=== PATIENT | female | born 1940 | race African-American/Black ===

== ENCOUNTER 2020-07-16 11:26 | Inpatient (IN) | payer MEDICARE, OTHER ==
[~2020-07-16] VITALS: Ht 170.2 cm; Wt 93.0 kg
[~2020-07-16 11:26] MED LIST: AMLO-187 PO; ASPI-482 PO; BENZ-8 PO; CALC-530 PO; CARV12.511 PO; CARV25TA PO; CHLO25TA10 PO; CYCL10TA2 PO; DICL100T68 PO; DONE5TAB7 PO; GABA300C18 PO; GUAI600T47 PO; LISI10TA2 PO; NITR0.4T22 SL; POTA20TA12 PO; RIVA20TA2 PO; TRIA1CAP PO
[2020-07-16] MEDS ORDERED: ONDANSETRON PF 4 MG/2 ML VIAL. IVP ONE (11:45)
[2020-07-16] MEDS ORDERED: IV NORMAL SALINE 1000ML BAG 1,000 ML IV ONE (11:45)
[2020-07-16 12:00] LABS: BASO % 0 % (0-3); EOS % 0 % (0-3); HEMATOCRIT 38.4 % (36.0-47.0); HEMOGLOBIN 12.9 g/dL (12.0-15.5); LYMPH % 30 % (24-48); MEAN CORPUSCULAR HEMOGLOBIN 28 pg (25-35); MEAN CORPUSCULAR HGB CONC 34 g/dL (31-37); MEAN CORPUSCULAR VOLUME 83 fL (79-100); MONO # 0.3 x10^3/uL (0.0-1.1); MONO % 8 % (0-9); NEUT # 2.1 x10^3/uL (1.8-7.7); NEUT % 62 % (31-73); PLATELET COUNT 148 x10^3/uL (140-400); RED BLOOD COUNT 4.63 x10^6/uL (3.50-5.40); RED CELL DISTRIBUTION WIDTH 16.1 % (11.5-14.5); WHITE BLOOD COUNT 3.4 x10^3/uL (4.0-11.0)
[2020-07-16 12:06] LABS: CALCIUM 8.3 mg/dL (8.5-10.1); CREATININE 1.3 mg/dL (0.6-1.0); GFR 47.6; POTASSIUM 3.2 mmol/L (3.5-5.1)
[2020-07-16 12:19] LABS: ALBUMIN 3.7 g/dL (3.4-5.0); ALBUMIN/GLOBULIN RATIO 0.9 (1.0-1.7); MAGNESIUM 1.9 mg/dL (1.8-2.4); TOTAL BILIRUBIN 0.7 mg/dL (0.2-1.0); TOTAL PROTEIN 7.8 g/dL (6.4-8.2)
[2020-07-16] MEDS ORDERED: IOHEXOL 350 MG/ML 100 ML VIAL. ONE (12:20)
[2020-07-16 12:26] LABS: CREATINE KINASE 77 U/L (26-192)
[2020-07-16] MEDS ORDERED: IOHEXOL 350 MG/ML 100 ML VIAL. IV ONE (12:30)
--- NOTE | 2020-07-16 12:45 | PHYS DOC ---
Past Medical History Smoking Status: Never Smoker General Adult EDM: Chief Complaint: SYNCOPE HPI: HPI: Patient is a 79 year old [f__sex] who presents with [] Review of Systems: Review of Systems: Constitutional: Denies fever or chills. [] Eyes: Denies change in visual acuity. [] HENT: Denies nasal congestion or sore throat. [] Respiratory: Denies cough or shortness of breath. [] Cardiovascular: Denies chest pain or edema. [] GI: Denies abdominal pain, nausea, vomiting, bloody stools or diarrhea. [] : Denies dysuria. [] Musculoskeletal: Denies back pain or joint pain. [] Integument: Denies rash. [] Neurologic: Denies headache, focal weakness or sensory changes. [] Endocrine: Denies polyuria or polydipsia. [] Lymphatic: Denies swollen glands. [] Psychiatric: Denies depression or anxiety. [] Heart Score: Risk Factors: Risk Factors: DM, Current or recent (<one month) smoker, HTN, HLP, family history of CAD, obesity. Risk Scores: Score 0 - 3: 2.5% MACE over next 6 weeks - Discharge Home Score 4 - 6: 20.3% MACE over next 6 weeks - Admit for Clinical Observation Score 7 - 10: 72.7% MACE over next 6 weeks - Early Invasive Strategies Current Medications: Current Medications Medications (Trade) Dose Ordered Sig/Magdalene Start Time Stop Time Status Last Admin Dose Admin Iohexol (Omnipaque 350 Mg/ml) 100 ml STK-MED ONCE 07/16/20 12:20 07/16/20 12:21 DC Ondansetron HCl (Zofran) 4 mg 1X ONCE 07/16/20 11:45 07/16/20 11:46 DC Sodium Chloride 1,000 ml @ 1,000 mls/hr 1X ONCE 07/16/20 11:45 07/16/20 12:44 Allergies: Allergies: Allergies Coded Allergies Type Severity Reaction Last Updated Verified ARB-Angiotensin Receptor Antagonist Allergy Intermediate 05/01/15 Yes Penicillins Allergy Intermediate 05/01/15 Yes meperidine Allergy Intermediate 05/01/15 Yes Physical Exam: PE: Constitutional: Well developed, well nourished, no acute distress, non-toxic appearance. [] HENT: Normocephalic, atraumatic, bilateral external ears normal, oropharynx moist, no oral exudates, nose normal. [] Eyes: PERRLA, EOMI, conjunctiva normal, no discharge. [] Neck: Normal range of motion, no tenderness, supple, no stridor. [] Cardiovascular:Heart rate regular rhythm, no murmur [] Lungs & Thorax: Bilateral breath sounds clear to auscultation [] Abdomen: Bowel sounds normal, soft, no tenderness, no masses, no pulsatile masses. [] Skin: Warm, dry, no erythema, no rash. [] Back: No tenderness, no CVA tenderness. [] Extremities: No tenderness, no cyanosis, no clubbing, ROM intact, no edema. [] Neurologic: Alert and oriented X 3, normal motor function, normal sensory function, no focal deficits noted. [] Psychologic: Affect normal, judgement normal, mood normal. [] Current Patient Data: Labs: Laboratory Tests Test 07/16/20 11:35 White Blood Count 3.4 x10^3/uL (4.0-11.0) L Red Blood Count 4.63 x10^6/uL (3.50-5.40) Hemoglobin 12.9 g/dL (12.0-15.5) Hematocrit 38.4 % (36.0-47.0) Mean Corpuscular Volume 83 fL (79-100) Mean Corpuscular Hemoglobin 28 pg (25-35) Mean Corpuscular Hemoglobin Concent 34 g/dL (31-37) Red Cell Distribution Width 16.1 % (11.5-14.5) H Platelet Count 148 x10^3/uL (140-400) Neutrophils (%) (Auto) 62 % (31-73) Lymphocytes (%) (Auto) 30 % (24-48) Monocytes (%) (Auto) 8 % (0-9) Eosinophils (%) (Auto) 0 % (0-3) Basophils (%) (Auto) 0 % (0-3) Neutrophils # (Auto) 2.1 x10^3/uL (1.8-7.7) Lymphocytes # (Auto) 1.0 x10^3/uL (1.0-4.8) Monocytes # (Auto) 0.3 x10^3/uL (0.0-1.1) Eosinophils # (Auto) 0.0 x10^3/uL (0.0-0.7) Basophils # (Auto) 0.0 x10^3/uL (0.0-0.2) Sodium Level 141 mmol/L (136-145) Potassium Level 3.2 mmol/L (3.5-5.1) L Chloride Level 104 mmol/L (98-107) Carbon Dioxide Level 28 mmol/L (21-32) Anion Gap 9 (6-14) Blood Urea Nitrogen 15 mg/dL (7-20) Creatinine 1.3 mg/dL (0.6-1.0) H Estimated GFR (Cockcroft-Gault) 47.6 BUN/Creatinine Ratio 12 (6-20) Glucose Level 134 mg/dL (70-99) H Lactic Acid Level 1.9 mmol/L (0.4-2.0) Calcium Level 8.3 mg/dL (8.5-10.1) L Magnesium Level 1.9 mg/dL (1.8-2.4) Total Bilirubin 0.7 mg/dL (0.2-1.0) Aspartate Amino Transferase (AST) 22 U/L (15-37) Alanine Aminotransferase (ALT) 21 U/L (14-59) Alkaline Phosphatase 116 U/L (46-116) Creatine Kinase 77 U/L (26-192) Creatine Kinase MB (Mass) < 0.5 ng/mL (0.0-3.6) Creatine Kinase MB Relative Index % (0-4) Troponin I Quantitative 0.046 ng/mL (0.000-0.055) Total Protein 7.8 g/dL (6.4-8.2) Albumin 3.7 g/dL (3.4-5.0) Albumin/Globulin Ratio 0.9 (1.0-1.7) L Laboratory Tests 07/16/20 11:35 Laboratory Tests 07/16/20 11:35 EKG: EKG: Sinus Bradycardia. QTc:450 QRS: 84 QT:500 [] Radiology/Procedures: Radiology/Procedures: [] Course & Med Decision Making: Course & Med Decision Making Pertinent Labs and Imaging studies reviewed. (See chart for details) [] Dragon Disclaimer: Dragon Disclaimer: This electronic medical record was generated, in whole or in part, using a voice recognition dictation system. Departure Departure Impression: Primary Impression: Syncope Qualified Codes: R55 - Syncope and collapse Additional Impressions: Hypoxia Suspected 2019 novel coronavirus infection Disposition: 09 ADMITTED INPT THIS HOSP Condition: GUARDED Referrals: PAT EMMANUEL MD (PCP) Critical Care Time Critical care time was 30 minutes which includes time at bedside, spent in discussion of patient's care with specialists and/or family members, with interpretation of laboratory and/or radiological studies and is exclusive of procedures. SHOLA VANG DO Jul 16, 2020 12:45
--- NOTE | 2020-07-16 12:58 | RAD ---
CT scan of the head without contrast 07/16/2020 Clinical History: Syncope. Altered mental status. Technique: Unenhanced, contiguous, 5 mm axial sections were obtained through the head. One or more of the following individualized dose reduction techniques were utilized for this study: 1. Automated exposure control. 2. Adjustment of the mA and/or kV according to patient size. 3. Use of iterative reconstruction technique. Findings: 01/07/2020. There is generalized parenchymal atrophy. Areas of decreased attenuation are seen within the perivent ricular and subcortical white matter of both cerebral hemispheres consistent with areas of small vess el ischemic disease. No acute parenchymal abnormality is seen. No extra-axial fluid collection is not ed. No skull fracture is seen. Impression: No acute intracranial abnormality is seen. CT scan of the cervical spine without contrast 07/16/2020 Clinical history: Syncope. Technique: Unenhanced, contiguous, 0.625 mm axial sections were obtained through the cervical spine. Axial, coronal and sagittal reconstructed images were obtained. One or more of the following individualized dose reduction techniques were utilized for this study: 1. Automated exposure control. 2. Adjustment of the mA and/or kV according to patient size. 3. Use of iterative reconstruction technique. Findings: Sagittal and coronal reconstructed images demonstrate mild lateral curvature of the cervica l spine, convex to the right. There is reversal the normal cervical lordosis. Degenerative changes co nsisting of varying degrees of disc space narrowing, vertebral endplate sclerosis and mild to moderat e anterior and posterior vertebral body osteophyte formation are seen throughout the cervical disc sp aces. Moderate atherosclerotic calcification is seen in the region of the carotid bifurcations. No fracture or subluxation of the cervical vertebra vertebrae is seen. Degenerative changes are seen involving the uncovertebral and facet joints throughout the cervical disc spaces. Impression: No fracture or subluxation of the cervical vertebra is identified. Electronically signed by: Carlos Swann MD (07/16/2020 12:55 PM) [id number]
--- NOTE | 2020-07-16 13:06 | RAD ---
CTA scan of the Chest with Contrast (Pulmonary Embolism protocol) 07/16/2020 Clinical History: Hypoxia. Technique: After the intravenous administration of 90 cc of Isovue-370, contiguous, 0.625 mm axial se ctions were obtained through the chest. 2 mm axial and 3D MIP coronal and sagittal reconstructed danish ges were obtained. One or more of the following individualized dose reduction techniques were utilized for this study: 1. Automated exposure control. 2. Adjustment of the mA and/or kV according to patient size. 3. Use of iterative reconstruction technique. Findings: No filling defect is seen within the major branches of either pulmonary artery. There is n o CT evidence of pulmonary embolism. The heart is mildly enlarged. Atherosclerotic calcification of t he thoracic aorta and its branches is noted. There is mild to moderate cardiomegaly. A small pericard ial effusion is seen. Extensive coronary artery calcifications are noted. There are very small bilateral pleural effusions, right greater than left. Dependent atelectasis is s een involving both lungs. No area of consolidation is seen. No pneumothorax is noted. Impression: There is no CT evidence of pulmonary embolism. CT scan of the abdomen and pelvis with contrast 07/16/2020 CLINICAL HISTORY: Abdominal pain. TECHNIQUE: After the intravenous administration of 90 cc of Isovue-370, contiguous, 5 mm axial sectio ns were obtained through the abdomen and pelvis. One or more of the following individualized dose reduction techniques were utilized for this study: 1. Automated exposure control. 2. Adjustment of the mA and/or kV according to patient size. 3. Use of iterative reconstruction technique. FINDINGS: Images through the lung bases demonstrate mild to moderate cardiomegaly. Small pericardial effusion small bilateral pleural effusions are noted. Dependent atelectasis is seen involving both lo wer lobes. Rounded low-attenuation lesions are seen scattered throughout both lobes of the liver consistent with hepatic cysts. These measure 5 mm in size. Spleen, pancreas, and adrenal glands are within normal li mits. Rounded low-attenuation lesions are seen involving both kidneys. These measure 3 mm to 9 mm in size. They likely represent cysts. No further imaging evaluation is recommended. Atherosclerotic calcification of the abdominal aorta and its branches is seen. The abdominal aorta ta pers normally. The gallbladder is contracted. No free fluid or free air is within the abdomen. Air an d stool are seen throughout the colon. There is no evidence of bowel obstruction. Images through the pelvis demonstrated the urinary bladder distended with urine. Calcifications are s een within the pelvis consistent with phleboliths. Moderate to large amount stool seen involving the rectum and sigmoid colon. No free fluid is seen. Very mild S-shaped curvature of the thoracolumbar sp ine is noted. Degenerative changes are seen involving the lower thoracic and throughout the lumbar sp ine along with both hips. IMPRESSION: No acute abnormality is seen. Electronically signed by: Carlos Swann MD (07/16/2020 1:04 PM) [id number]
[2020-07-16] MEDS ORDERED: POTASSIUM CHLORIDE 20 MEQ TABLET.ER. PO ONE (14:45)
[2020-07-16] MEDS ORDERED: ONDANSETRON PF 4 MG/2 ML VIAL. IV PRN (16:00)
[2020-07-16 16:04] LABS: BILIRUBIN,URINE NEGATIVE (NEG); CLARITY,URINE CLEAR; COLOR,URINE YELLOW; NITRITE,URINE NEGATIVE (NEG); PROTEIN,URINE NEGATIVE (NEG-TRACE)
[2020-07-16 16:10] LABS: BACTERIA,URINE 0 /HPF (0-FEW); RBC,URINE 0 /HPF (0-2); WBC,URINE 0 /HPF (0-4)
[2020-07-16 17:15] VITALS: BP 181/79
[2020-07-16] MEDS ORDERED: ONDANSETRON PF 4 MG/2 ML VIAL. IVP PRN (17:45)
[2020-07-16] MEDS ORDERED: DEXTROSE 50% 25 GM / 50ML DISP.SYRIN. IV PRN (17:45)
[2020-07-16] MEDS ORDERED: DOCUSATE SODIUM 100 MG CAPSULE. PO PRN (17:45)
[2020-07-16] MEDS ORDERED: SENNOSIDES 8.6 MG TABLET PO PRN (17:45)
--- NOTE | 2020-07-16 17:47 | PDOC1 ---
History and Physical Date of Service: DOS: DATE: 07/16/20 TIME: 17:47 Chief Complaint: Chief Complain: syncope History of Present Illness: HPI: History obtained from chart review and discussion with the ED physician. Patient is an 79-year-old female with severe dementia who was transported to the [facility] from [place] by EMS from home. Patient was at home with family when she had a syncopal episode at 10:30 AM that was witnessed by the family and patient vomited shortly after. Patient had epigastric pain at the time and also left arm pain in which she was given aspirin 324 mg, 1 sublingual nitro and 4 mg Zofran. Patient was lethargic on arrival. Patient is arousable to light stimuli and had low O2 saturation in the 80s. 4 L nasal cannula was applied and her saturation improved to 100% Patient was seen in the ED by me and she was only able to answer basic questions. She is alert and oriented to herself only. Patient is able to follow simple commands. Past Medical/Surgical History: PMH/PSH: Unable to obtain due to severe dementia. Family was not present Allergies: Allergies: Coded Allergies: ARB-Angiotensin Receptor Antagonist (Verified Allergy, Intermediate, 05/01/15) Penicillins (Verified Allergy, Intermediate, 05/01/15) meperidine (Verified Allergy, Intermediate, 05/01/15) Family History: Family History: Unable to obtain due to severe dementia. Family was not present Social History: Social History: Unable to obtain due to severe dementia. Family was not present Current Medications: Current Medications Current Medications Sodium Chloride 1,000 ml @ 1,000 mls/hr 1X ONCE IV Last administered on 07/16/20at 12:59; Start 07/16/20 at 11:45; Stop 07/16/20 at 12:44; Status DC Ondansetron HCl (Zofran) 4 mg 1X ONCE IVP ; Start 07/16/20 at 11:45; Stop 07/16/20 at 11:46; Status DC Iohexol (Omnipaque 350 Mg/ml) 90 ml 1X ONCE IV Last administered on 07/16/20at 12:39; Start 07/16/20 at 12:30; Stop 07/16/20 at 12:31; Status DC Iohexol (Omnipaque 350 Mg/ml) 100 ml STK-MED ONCE .ROUTE ; Start 07/16/20 at 12:20; Stop 07/16/20 at 12:21; Status DC Potassium Chloride (Klor-Con) 40 meq 1X ONCE PO Last administered on 07/16/20at 15:38; Start 07/16/20 at 14:45; Stop 07/16/20 at 14:46; Status DC Ondansetron HCl (Zofran) 4 mg PRN Q8HRS PRN IV NAUSEA/VOMITING; Start 07/16/20 at 16:00; Stop 07/17/20 at 15:59 Active Scripts Active Carvedilol 12.5 Mg Tablet 12.5 Mg PO BIDWMEALS Reported Donepezil Hcl 5 Mg Tablet 1 Tab PO DAILY LAST DOSE: 10/28/15 AM NEXT DOSE: 10/29/15 AM Gabapentin 300 Mg Capsule 300 Mg PO TID LAST DOSE: 10/28/15 AM NEXT DOSE: 10/28/15 2PM Xarelto (Rivaroxaban) 20 Mg Tablet 20 Mg PO DAILY NEXT DOSE: 10/29/15 AM Potassium Chloride 20 Meq Tab.er.prt 1 Tab PO BID LAST DOSE: 10/28/15 AM NEXT DOSE: 10/28/15 AFTERNOON Aspir 81 (Aspirin) 81 Mg Tablet.dr 1 Tab PO DAILY LAST DOSE: 10/28/15 AM NEXT DOSE: 10/29/15 AM Amlodipine Besylate 10 Mg Tablet 10 Mg PO DAILY LAST DOSE: 10/28/15 AM NEXT DOSE: 10/29/15 AM ROS: Review of Systems Unable to obtain due to severe dementia. Family was not present Physical Exam: Vital Signs: Vital Signs Date Time Temp Pulse Resp B/P (MAP) Pulse Ox O2 Delivery O2 Flow Rate FiO2 07/16/20 17:15 97.7 60 18 181/79 (113) 100 Nasal Cannula 3.0 97.7 Physcial Exam: GEN: No apparent distress. Alert and oriented HEENT: Normal cephalic, atraumatic, external auditory canals are patent EYES: Extraocular muscles are intact, pupil are equally round and reactive to light and accommodation MUSCULOSKELETAL: Well developed , well nourished, good range of motion ENDOCRINE: No thyromegaly was palpated LYMPHATICS: No cervical chain or axillary nodes were noted HEMATOPOIETIC: No bruising NECK: Supple, no JVD, no thyromegaly was noted LUNGS: Clear to auscultation in all lung alonso without rhonchi or wheezing HEART: RRR, S!, S2 present. Peripheral pulses intact, no obvious murmurs noted ABDOMEN: Soft, nontender. Positive bowel sounds, no organomegaly, normal bowel sounds EXTREMITIES: Without clubbing, cyanosis, or edema. Pedal pulses intact. Negative Homans sign NEUROLOGIC: Normal speech and tone. A&O x 3, moves all extremities, no obvious focal deficits PSYCHIATRIC: Normal affect, normal mood. Stable SKIN: No ulcerations or rashes, good skin turgor, no jaundice VASCULAR: Good capillary refill, neurovascular bundle appears to be intact Labs: Labs: Laboratory Tests Test 07/16/20 11:35 07/16/20 15:50 07/16/20 15:55 White Blood Count 3.4 x10^3/uL (4.0-11.0) Red Blood Count 4.63 x10^6/uL (3.50-5.40) Hemoglobin 12.9 g/dL (12.0-15.5) Hematocrit 38.4 % (36.0-47.0) Mean Corpuscular Volume 83 fL (79-100) Mean Corpuscular Hemoglobin 28 pg (25-35) Mean Corpuscular Hemoglobin Concent 34 g/dL (31-37) Red Cell Distribution Width 16.1 % (11.5-14.5) Platelet Count 148 x10^3/uL (140-400) Neutrophils (%) (Auto) 62 % (31-73) Lymphocytes (%) (Auto) 30 % (24-48) Monocytes (%) (Auto) 8 % (0-9) Eosinophils (%) (Auto) 0 % (0-3) Basophils (%) (Auto) 0 % (0-3) Neutrophils # (Auto) 2.1 x10^3/uL (1.8-7.7) Lymphocytes # (Auto) 1.0 x10^3/uL (1.0-4.8) Monocytes # (Auto) 0.3 x10^3/uL (0.0-1.1) Eosinophils # (Auto) 0.0 x10^3/uL (0.0-0.7) Basophils # (Auto) 0.0 x10^3/uL (0.0-0.2) Sodium Level 141 mmol/L (136-145) Potassium Level 3.2 mmol/L (3.5-5.1) Chloride Level 104 mmol/L (98-107) Carbon Dioxide Level 28 mmol/L (21-32) Anion Gap 9 (6-14) Blood Urea Nitrogen 15 mg/dL (7-20) Creatinine 1.3 mg/dL (0.6-1.0) Estimated GFR (Cockcroft-Gault) 47.6 BUN/Creatinine Ratio 12 (6-20) Glucose Level 134 mg/dL (70-99) Lactic Acid Level 1.9 mmol/L (0.4-2.0) Calcium Level 8.3 mg/dL (8.5-10.1) Magnesium Level 1.9 mg/dL (1.8-2.4) Total Bilirubin 0.7 mg/dL (0.2-1.0) Aspartate Amino Transf (AST/SGOT) 22 U/L (15-37) Alanine Aminotransferase (ALT/SGPT) 21 U/L (14-59) Alkaline Phosphatase 116 U/L (46-116) Creatine Kinase 77 U/L (26-192) Creatine Kinase MB (Mass) < 0.5 ng/mL (0.0-3.6) Creatine Kinase MB Relative Index % (0-4) Troponin I Quantitative 0.046 ng/mL (0.000-0.055) 0.041 ng/mL (0.000-0.055) Total Protein 7.8 g/dL (6.4-8.2) Albumin 3.7 g/dL (3.4-5.0) Albumin/Globulin Ratio 0.9 (1.0-1.7) Urine Collection Type U cath Urine Color Yellow Urine Clarity Clear Urine pH 6.0 (<5.0-8.0) Urine Specific [place] >=1.030 (1.000-1.030) Urine Protein Negative mg/dL (NEG-TRACE) Urine Glucose (UA) Negative mg/dL (NEG) Urine Ketones (Stick) Negative mg/dL (NEG) Urine Blood Negative (NEG) Urine Nitrite Negative (NEG) Urine Bilirubin Negative (NEG) Urine Urobilinogen Dipstick 1.0 mg/dL (0.2 mg/dL) Urine Leukocyte Esterase Negative (NEG) Urine RBC 0 /HPF (0-2) Urine WBC 0 /HPF (0-4) Urine Squamous Epithelial Cells Few /LPF Urine Bacteria 0 /HPF (0-FEW) Urine Mucus Slight /LPF Laboratory Tests Test 07/16/20 11:35 07/16/20 15:50 07/16/20 15:55 White Blood Count 3.4 x10^3/uL (4.0-11.0) Red Blood Count 4.63 x10^6/uL (3.50-5.40) Hemoglobin 12.9 g/dL (12.0-15.5) Hematocrit 38.4 % (36.0-47.0) Mean Corpuscular Volume 83 fL (79-100) Mean Corpuscular Hemoglobin 28 pg (25-35) Mean Corpuscular Hemoglobin Concent 34 g/dL (31-37) Red Cell Distribution Width 16.1 % (11.5-14.5) Platelet Count 148 x10^3/uL (140-400) Neutrophils (%) (Auto) 62 % (31-73) Lymphocytes (%) (Auto) 30 % (24-48) Monocytes (%) (Auto) 8 % (0-9) Eosinophils (%) (Auto) 0 % (0-3) Basophils (%) (Auto) 0 % (0-3) Neutrophils # (Auto) 2.1 x10^3/uL (1.8-7.7) Lymphocytes # (Auto) 1.0 x10^3/uL (1.0-4.8) Monocytes # (Auto) 0.3 x10^3/uL (0.0-1.1) Eosinophils # (Auto) 0.0 x10^3/uL (0.0-0.7) Basophils # (Auto) 0.0 x10^3/uL (0.0-0.2) Sodium Level 141 mmol/L (136-145) Potassium Level 3.2 mmol/L (3.5-5.1) Chloride Level 104 mmol/L (98-107) Carbon Dioxide Level 28 mmol/L (21-32) Anion Gap 9 (6-14) Blood Urea Nitrogen 15 mg/dL (7-20) Creatinine 1.3 mg/dL (0.6-1.0) Estimated GFR (Cockcroft-Gault) 47.6 BUN/Creatinine Ratio 12 (6-20) Glucose Level 134 mg/dL (70-99) Lactic Acid Level 1.9 mmol/L (0.4-2.0) Calcium Level 8.3 mg/dL (8.5-10.1) Magnesium Level 1.9 mg/dL (1.8-2.4) Total Bilirubin 0.7 mg/dL (0.2-1.0) Aspartate Amino Transf (AST/SGOT) 22 U/L (15-37) Alanine Aminotransferase (ALT/SGPT) 21 U/L (14-59) Alkaline Phosphatase 116 U/L (46-116) Creatine Kinase 77 U/L (26-192) Creatine Kinase MB (Mass) < 0.5 ng/mL (0.0-3.6) Creatine Kinase MB Relative Index % (0-4) Troponin I Quantitative 0.046 ng/mL (0.000-0.055) 0.041 ng/mL (0.000-0.055) Total Protein 7.8 g/dL (6.4-8.2) Albumin 3.7 g/dL (3.4-5.0) Albumin/Globulin Ratio 0.9 (1.0-1.7) Urine Collection Type U cath Urine Color Yellow Urine Clarity Clear Urine pH 6.0 (<5.0-8.0) Urine Specific [place] >=1.030 (1.000-1.030) Urine Protein Negative mg/dL (NEG-TRACE) Urine Glucose (UA) Negative mg/dL (NEG) Urine Ketones (Stick) Negative mg/dL (NEG) Urine Blood Negative (NEG) Urine Nitrite Negative (NEG) Urine Bilirubin Negative (NEG) Urine Urobilinogen Dipstick 1.0 mg/dL (0.2 mg/dL) Urine Leukocyte Esterase Negative (NEG) Urine RBC 0 /HPF (0-2) Urine WBC 0 /HPF (0-4) Urine Squamous Epithelial Cells Few /LPF Urine Bacteria 0 /HPF (0-FEW) Urine Mucus Slight /LPF Images: Images CT HEAD/ABD/PELVIS FINDINGS: Images through the lung bases demonstrate mild to moderate cardiomegaly. Small pericardial effusion small bilateral pleural effusions are noted. Dependent atelectasis is seen involving both lower lobes. Rounded low-attenuation lesions are seen scattered throughout both lobes of the liver consistent with hepatic cysts. These measure 5 mm in size. Spleen, pancreas, and adrenal glands are within normal limits. Rounded low-attenuation lesions are seen involving both kidneys. These measure 3 mm to 9 mm in size. They likely represent cysts. No further imaging evaluation is recommended. Atherosclerotic calcification of the abdominal aorta and its branches is seen. The abdominal aorta tapers normally. The gallbladder is contracted. No free fluid or free air is within the abdomen. Air and stool are seen throughout the colon. There is no evidence of bowel obstruction. Images through the pelvis demonstrated the urinary bladder distended with urine. Calcifications are seen within the pelvis consistent with phleboliths. Moderate to large amount stool seen involving the rectum and sigmoid colon. No free fluid is seen. Very mild S-shaped curvature of the thoracolumbar spine is noted. Degenerative changes are seen involving the lower thoracic and throughout the lumbar spine along with both hips. IMPRESSION: No acute abnormality is seen. Assessment/Plan Assessment/Plan Syncope due to vasovagal etiology, orthostatic hypotension, cardiovascular etiology, seizure, stroke, migraine, hypoglycemia, hypoxia, anemia, medications. Prodromal symptoms unknown, Post syncope symptoms include nausea vomiting and epigastric pain Abnormal EKG Hypoxia Investigation for Covid infection Severe dementia Leukopenia Hypokalemia BOLIVAR due to vasomotor nephropathy Admit to medicine for further work-up Cardiology consult Pending echocardiogram after Covid test negative Continue telemetry monitoring Fall precautions Orthostatic vital signs Hold all centrally acting medications Pending medication reconciliation Lovenox for DVT prophylaxis Cardiac diet Full code Discussed with RN and SW Disposition pending cardiac evaluation Surrogate decision maker is Ruth Kerr Justifications for Admission Syncope Indications AV Block?: Yes Justification for admission: Patient has concerning symptoms associated with conduction system disease such as 2nd degree AV block, Type 2 or 3rd-degree AV block and will require inpatient level of care for further evaluation and management. Is patient dehydrated?: Yes Justification for admission: There is concern that patient may be severely dehydrated accounting for the syncope. Patient needs inpatient level of care for further evaluation and management. Other Justification JAYLA CISNEROS MD Jul 16, 2020 17:47
[2020-07-16 19:00] VITALS: BP 170/72
[2020-07-16] MEDS: IV NORMAL SALINE 1000ML BAG 1,000 ML IV SCH (21:49)
[2020-07-16 23:00] VITALS: BP 182/118
[2020-07-17 03:00] VITALS: BP 208/98
[2020-07-17] MEDS ORDERED: CARV25TA2 PO (03:05)
[2020-07-17] MEDS: LABETALOL 20 MG/4 ML DISP.SYRIN. IVP PRN ×3 (04:28→21:37)
[2020-07-17] MEDS: IV NORMAL SALINE 1000ML BAG 1,000 ML IV SCH ×3 (04:29→21:36)
--- NOTE | 2020-07-17 05:28 | EKG ---
[address] [place] [address] Test Date: 2020-07-17 Test Time: 05:19:09 Pat Name: ROSY ANDERSON Department: Room: [facility] Gender: F [employer]: : 1940 Requested By: JAYLA CISNEROS Order Number: [id number] Reading MD: Measurements Intervals [place] Rate: 66 P: 0 ND: 180 QRS: 8 QRSD: 90 T: 175 QT: 424 QTc: 446 Interpretive Statements SINUS RHYTHM LEFT ATRIAL ABNORMALITY LVH WITH REPOLARIZATION ABNORMALITY ABNORMAL ECG RI6.02 Compared to ECG 07/16/2020 11:29:39 Atrial abnormality now present Left ventricular hypertrophy now present Early repolarization now present
--- NOTE | 2020-07-17 07:30 | NUR ---
CALL RECEIVED FROM DR CARRIZALES RE CARDIOLOGY CONSULT. HE WAS NOTIFIED OF BP 207/88. RECEIVED ORDER TO GIVE REPEAT DOSE OF LABETALOL IV AND RESTART HOME MEDS.
[2020-07-17 07:43] VITALS: BP 207/88
[2020-07-17] MEDS ORDERED: ANTI-COAG MONITOR BY PHARMACY. MC PRN (08:00)
[2020-07-17] MEDS: DONEPEZIL HCL 5 MG TABLET. PO SCH (08:29)
[2020-07-17] MEDS: CARVEDILOL 12.5 MG TABLET. PO SCH ×2 (08:30→16:35)
[2020-07-17] MEDS: GABAPENTIN 300 MG CAPSULE. PO SCH ×3 (08:30→21:34)
[2020-07-17] MEDS ORDERED: ENOXAPARIN 30 MG/0.3 ML SYRINGE. SQ SCH ×2 (09:00)
[2020-07-17 09:03] LABS: BASO % 1 % (0-3); EOS % 0 % (0-3); HEMATOCRIT 38.2 % (36.0-47.0); HEMOGLOBIN 12.4 g/dL (12.0-15.5); LYMPH # 0.8 x10^3/uL (1.0-4.8); LYMPH % 31 % (24-48); MEAN CORPUSCULAR HEMOGLOBIN 27 pg (25-35); MEAN CORPUSCULAR HGB CONC 33 g/dL (31-37); MEAN CORPUSCULAR VOLUME 84 fL (79-100); MONO # 0.3 x10^3/uL (0.0-1.1); MONO % 13 % (0-9); NEUT # 1.5 x10^3/uL (1.8-7.7); NEUT % 55 % (31-73); PLATELET COUNT 122 x10^3/uL (140-400); RED BLOOD COUNT 4.54 x10^6/uL (3.50-5.40); RED CELL DISTRIBUTION WIDTH 15.9 % (11.5-14.5); WHITE BLOOD COUNT 2.6 x10^3/uL (4.0-11.0)
[2020-07-17 09:19] LABS: CALCIUM 8.4 mg/dL (8.5-10.1); CREATININE 0.8 mg/dL (0.6-1.0); GFR 83.3; POTASSIUM 3.2 mmol/L (3.5-5.1)
--- NOTE | 2020-07-17 10:21 | NUR ---
SW following for discharge planning. Spoke with RN and reviewed chart. Pt from home with daughter/POJudy Gonsales ([phone]). Pt confused and forgetful. Pt has an elevated blood pressure. Consult to cardiology. Pt currently on 3l 02 with no home 02 and a cardiac diet. Spoke with Ilda who stated she lives with pt and provides 24 hour care. Ilda stated she does pay for private duty care that comes a few times per week. Ilda agreeable to HH and will check to see if the [employer] company currently providing care has HH services. Ilda stated pt might benefit from a walker on on discharge. PT/OT to evaluate. Pt COVID pending. Pt will likely need a 6 min walk prior to discharge to determine if home 02 is needed. SW following.
[2020-07-17 11:00] VITALS: BP 149/64
[2020-07-17] MEDS ORDERED: POTASSIUM CHLORIDE 20 MEQ TABLET.ER. PO ONE (11:00)
--- NOTE | 2020-07-17 11:12 | PDOC ---
[employer] PROGRESS NOTE Date of Service DOS: DATE: 07/17/20 TIME: 11:10 Chief Complaint Chief Complaint Syncope due to vasovagal etiology, orthostatic hypotension, cardiovascular etiology, seizure, stroke, migraine, hypoglycemia, hypoxia, anemia, medications. Prodromal symptoms unknown, Post syncope symptoms include nausea vomiting and epigastric pain Abnormal EKG Hypoxia Investigation for Covid infection Severe dementia Leukopenia Hypokalemia BOLIVAR due to vasomotor nephropathy History of Present Illness History of Present Illness 07/17/2020 Patient seen and examined on the COVID-19 floor Her Covid swab is still pending She is pleasantly confused Blood pressure running in the 200s but we got it down to 177 with some labetalol and resumption of her Coreg I had the nurse go ahead and start Norvasc 10 p.o. daily as well Her potassium is little low we are going to replace that Vitals/I&O Vitals/I&O: Vital Signs Date Time Temp Pulse Resp B/P (MAP) Pulse Ox O2 Delivery O2 Flow Rate FiO2 07/17/20 11:00 99.7 71 22 149/64 (92) 93 Nasal Cannula 3.0 99.7 I & O 07/16/20 07/16/20 07/17/20 14:59 22:59 06:59 Intake Total 1000 ml 0 ml 0 ml Balance 1000 ml 0 ml 0 ml Physical Exam General: Other (Pleasantly confused) Heart: Regular rate, Normal S1 Lungs: Wheezing Abdomen: Normal bowel sounds Extremities: No clubbing, No cyanosis Skin: No rashes, No breakdown Labs Labs: Laboratory Tests Test 07/16/20 11:35 07/16/20 15:50 07/16/20 15:55 07/17/20 00:15 White Blood Count 3.4 x10^3/uL (4.0-11.0) Red Blood Count 4.63 x10^6/uL (3.50-5.40) Hemoglobin 12.9 g/dL (12.0-15.5) Hematocrit 38.4 % (36.0-47.0) Mean Corpuscular Volume 83 fL (79-100) Mean Corpuscular Hemoglobin 28 pg (25-35) Mean Corpuscular Hemoglobin Concent 34 g/dL (31-37) Red Cell Distribution Width 16.1 % (11.5-14.5) Platelet Count 148 x10^3/uL (140-400) Neutrophils (%) (Auto) 62 % (31-73) Lymphocytes (%) (Auto) 30 % (24-48) Monocytes (%) (Auto) 8 % (0-9) Eosinophils (%) (Auto) 0 % (0-3) Basophils (%) (Auto) 0 % (0-3) Neutrophils # (Auto) 2.1 x10^3/uL (1.8-7.7) Lymphocytes # (Auto) 1.0 x10^3/uL (1.0-4.8) Monocytes # (Auto) 0.3 x10^3/uL (0.0-1.1) Eosinophils # (Auto) 0.0 x10^3/uL (0.0-0.7) Basophils # (Auto) 0.0 x10^3/uL (0.0-0.2) Sodium Level 141 mmol/L (136-145) Potassium Level 3.2 mmol/L (3.5-5.1) Chloride Level 104 mmol/L (98-107) Carbon Dioxide Level 28 mmol/L (21-32) Anion Gap 9 (6-14) Blood Urea Nitrogen 15 mg/dL (7-20) Creatinine 1.3 mg/dL (0.6-1.0) Estimated GFR (Cockcroft-Gault) 47.6 BUN/Creatinine Ratio 12 (6-20) Glucose Level 134 mg/dL (70-99) Lactic Acid Level 1.9 mmol/L (0.4-2.0) Calcium Level 8.3 mg/dL (8.5-10.1) Magnesium Level 1.9 mg/dL (1.8-2.4) Total Bilirubin 0.7 mg/dL (0.2-1.0) Aspartate Amino Transf (AST/SGOT) 22 U/L (15-37) Alanine Aminotransferase (ALT/SGPT) 21 U/L (14-59) Alkaline Phosphatase 116 U/L (46-116) Creatine Kinase 77 U/L (26-192) Creatine Kinase MB (Mass) < 0.5 ng/mL (0.0-3.6) Creatine Kinase MB Relative Index % (0-4) Troponin I Quantitative 0.046 ng/mL (0.000-0.055) 0.041 ng/mL (0.000-0.055) 0.026 ng/mL (0.000-0.055) Total Protein 7.8 g/dL (6.4-8.2) Albumin 3.7 g/dL (3.4-5.0) Albumin/Globulin Ratio 0.9 (1.0-1.7) Urine Collection Type U cath Urine Color Yellow Urine Clarity Clear Urine pH 6.0 (<5.0-8.0) Urine Specific [place] >=1.030 (1.000-1.030) Urine Protein Negative mg/dL (NEG-TRACE) Urine Glucose (UA) Negative mg/dL (NEG) Urine Ketones (Stick) Negative mg/dL (NEG) Urine Blood Negative (NEG) Urine Nitrite Negative (NEG) Urine Bilirubin Negative (NEG) Urine Urobilinogen Dipstick 1.0 mg/dL (0.2 mg/dL) Urine Leukocyte Esterase Negative (NEG) Urine RBC 0 /HPF (0-2) Urine WBC 0 /HPF (0-4) Urine Squamous Epithelial Cells Few /LPF Urine Bacteria 0 /HPF (0-FEW) Urine Mucus Slight /LPF Test 07/17/20 07:40 White Blood Count 2.6 x10^3/uL (4.0-11.0) Red Blood Count 4.54 x10^6/uL (3.50-5.40) Hemoglobin 12.4 g/dL (12.0-15.5) Hematocrit 38.2 % (36.0-47.0) Mean Corpuscular Volume 84 fL (79-100) Mean Corpuscular Hemoglobin 27 pg (25-35) Mean Corpuscular Hemoglobin Concent 33 g/dL (31-37) Red Cell Distribution Width 15.9 % (11.5-14.5) Platelet Count 122 x10^3/uL (140-400) Neutrophils (%) (Auto) 55 % (31-73) Lymphocytes (%) (Auto) 31 % (24-48) Monocytes (%) (Auto) 13 % (0-9) Eosinophils (%) (Auto) 0 % (0-3) Basophils (%) (Auto) 1 % (0-3) Neutrophils # (Auto) 1.5 x10^3/uL (1.8-7.7) Lymphocytes # (Auto) 0.8 x10^3/uL (1.0-4.8) Monocytes # (Auto) 0.3 x10^3/uL (0.0-1.1) Eosinophils # (Auto) 0.0 x10^3/uL (0.0-0.7) Basophils # (Auto) 0.0 x10^3/uL (0.0-0.2) Sodium Level 144 mmol/L (136-145) Potassium Level 3.2 mmol/L (3.5-5.1) Chloride Level 104 mmol/L (98-107) Carbon Dioxide Level 31 mmol/L (21-32) Anion Gap 9 (6-14) Blood Urea Nitrogen 14 mg/dL (7-20) Creatinine 0.8 mg/dL (0.6-1.0) Estimated GFR (Cockcroft-Gault) 83.3 Glucose Level 92 mg/dL (70-99) Calcium Level 8.4 mg/dL (8.5-10.1) Phosphorus Level 3.0 mg/dL (2.6-4.7) Magnesium Level 2.0 mg/dL (1.8-2.4) Assessment and Plan Assessmemt and Plan Problems Medical Problems: (1) Hypoxia Status: Acute (2) Suspected 2019 novel coronavirus infection Status: Acute (3) Syncope Status: Acute Syncope due to vasovagal etiology, orthostatic hypotension, cardiovascular etiology, seizure, stroke, migraine, hypoglycemia, hypoxia, anemia, medications. Prodromal symptoms unknown, Post syncope symptoms include nausea vomiting and epigastric pain Abnormal EKG Hypoxia Investigation for Covid infection Severe dementia Leukopenia Hypokalemia BOLIVAR due to vasomotor nephropathy Plan Consult cardiology Replace potassium Add Norvasc Continue as needed labetalol Home meds Await COVID-19 testing Pending echocardiogram after Covid test negative Continue telemetry monitoring Fall precautions Orthostatic vital signs Hold all centrally acting medications Pending medication reconciliation Lovenox for DVT prophylaxis Cardiac diet Full code Discussed with RN and SW Disposition pending cardiac evaluation Surrogate decision maker is Ruth Kerr Comment Review of Relevant I have reviewed the following items antonio (where applicable) has been applied. Medications: Current Medications Medications (Trade) Dose Ordered Sig/Magdalene Route PRN Reason Start Time Stop Time Status Last Admin Dose Admin Sodium Chloride 1,000 ml @ 1,000 mls/hr 1X ONCE IV 07/16/20 11:45 07/16/20 12:44 DC 07/16/20 12:59 Iohexol (Omnipaque 350 Mg/ml) 90 ml 1X ONCE IV 07/16/20 12:30 07/16/20 12:31 DC 07/16/20 12:39 Potassium Chloride (Klor-Con) 40 meq 1X ONCE PO 07/16/20 14:45 07/16/20 14:46 DC 07/16/20 15:38 Sodium Chloride 1,000 ml @ 100 mls/hr Q10H IV 07/16/20 17:45 07/17/20 04:29 Enoxaparin Sodium (Lovenox 30mg Syringe) 30 mg DAILY SQ 07/17/20 09:00 07/17/20 07:56 DC 07/17/20 07:44 Labetalol HCl (Normodyne Iv Push) 10 mg PRN Q6HRS PRN IVP HYPERTENSION 07/17/20 03:15 07/17/20 07:45 Donepezil HCl (Aricept) 5 mg DAILY PO 07/17/20 09:00 07/17/20 08:29 Gabapentin (Neurontin) 300 mg TID PO 07/17/20 09:00 07/17/20 08:30 Carvedilol (Coreg) 12.5 mg BIDWMEALS PO 07/17/20 08:00 07/17/20 08:30 Justifications for Admission Syncope Indications AV Block?: Yes Justification for admission: Patient has concerning symptoms associated with conduction system disease such as 2nd degree AV block, Type 2 or 3rd-degree AV block and will require inpatient level of care for further evaluation and management. Is patient dehydrated?: Yes Justification for admission: There is concern that patient may be severely dehydrated accounting for the syncope. Patient needs inpatient level of care for further evaluation and management. Other Justification VENECIA PERAZA III DO Jul 17, 2020 11:12
[2020-07-17] MEDS: amLODIPine BESYLATE 10 MG TABLET PO SCH (11:49)
--- NOTE | 2020-07-17 13:59 | PDOC2 ---
CARDIAC CONSULT DATE OF CONSULT Date of Consult DATE: 07/17/20 TIME: 13:40 REASON FOR CONSULT Reason for Consult: Syncope REFERRING PHYSICIAN Referring Physician: Pawel SOURCE Source: Chart review, Patient HISTORY OF PRESENT ILLNESS HISTORY OF PRESENT ILLNESS This is an 79 yo female admitted for complains of passing out. Pt is a poor historian and details were obtained through staff with significant details leading to her admission. Reports that she was sitting when she went limp and apperas to have passed out. Unclear how long she was unconscious but vomited upon waking up. Apparently she has not been taking her BP med at home for unclear days. Also reported her receiving NTG but no mention of any chest pain but was noted with high BP and her SBP was in the 60s after that . No SOA and no palpitations. No diarrhea and no fever. I tried to contact her home but no one was answering. Denies any chest pain currently. Her BP as inpt has been labile and has been improving upon restart of her meds and no noted arrhythmias. Presently she does not where she is at and thinks it is yr 2013. 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) PAST SURGICAL HISTORY Past Surgical History: Other ([facility]) FAMILY HISTORY Family History: Coronary Artery Disease SOCIAL HISTORY Smoke: No ALCOHOL: none Drugs: None Lives: with Family CURRENT MEDICATIONS CURRENT MEDICATIONS Current Medications Medications (Trade) Dose Ordered Sig/Magdalene Route PRN Reason Start Time Stop Time Status Last Admin Dose Admin Potassium Chloride (Klor-Con) 40 meq 1X ONCE PO 07/16/20 14:45 07/16/20 14:46 DC 07/16/20 15:38 Sodium Chloride 1,000 ml @ 100 mls/hr Q10H IV 07/16/20 17:45 07/17/20 13:29 Enoxaparin Sodium (Lovenox 30mg Syringe) 30 mg DAILY SQ 07/17/20 09:00 07/17/20 07:56 DC 07/17/20 07:44 Labetalol HCl (Normodyne Iv Push) 10 mg PRN Q6HRS PRN IVP HYPERTENSION 07/17/20 03:15 07/17/20 07:45 Donepezil HCl (Aricept) 5 mg DAILY PO 07/17/20 09:00 07/17/20 08:29 Gabapentin (Neurontin) 300 mg TID PO 07/17/20 09:00 07/17/20 08:30 Carvedilol (Coreg) 12.5 mg BIDWMEALS PO 07/17/20 08:00 07/17/20 08:30 Potassium Chloride (Klor-Con) 40 meq 1X ONCE PO 07/17/20 11:00 07/17/20 11:01 DC 07/17/20 11:48 Amlodipine Besylate (Norvasc) 10 mg DAILY PO 07/17/20 11:00 07/17/20 11:49 ALLERGIES ALLERGIES: Coded Allergies: ARB-Angiotensin Receptor Antagonist (Verified Allergy, Intermediate, 05/01/15) Penicillins (Verified Allergy, Intermediate, 05/01/15) meperidine (Verified Allergy, Intermediate, 05/01/15) ROS Review of System limited, poor historian PHYSICAL EXAM General: Alert, Oriented X3, Cooperative, No acute distress HEENT: Atraumatic, Mucous membr. moist/pink Lungs: Clear to auscultation Heart: Regular rate (SR), Normal S1, Normal S2, No murmurs Abdomen: Soft, No tenderness Extremities: No cyanosis, No edema Skin: No breakdown, No significant lesion Neuro: Normal speech, Sensation intact Psych/Mental Status: Other (confused) MUSCULOSKELETAL: Osteoarthritic changes both hands VITALS/I&O VITALS/I&O: Vital Signs Date Time Temp Pulse Resp B/P (MAP) Pulse Ox O2 Delivery O2 Flow Rate FiO2 07/17/20 11:49 71 149/64 07/17/20 11:00 99.7 22 93 Nasal Cannula 3.0 99.7 I & O 07/16/20 07/16/20 07/17/20 15:00 23:00 07:00 Intake Total 1000 ml 0 ml Balance 1000 ml 0 ml LABS Lab: Laboratory Tests Test 07/16/20 15:50 07/16/20 15:55 07/17/20 00:15 07/17/20 07:40 Urine Collection Type U cath Urine Color Yellow Urine Clarity Clear Urine pH 6.0 (<5.0-8.0) Urine Specific [place] >=1.030 (1.000-1.030) Urine Protein Negative mg/dL (NEG-TRACE) Urine Glucose (UA) Negative mg/dL (NEG) Urine Ketones (Stick) Negative mg/dL (NEG) Urine Blood Negative (NEG) Urine Nitrite Negative (NEG) Urine Bilirubin Negative (NEG) Urine Urobilinogen Dipstick 1.0 mg/dL (0.2 mg/dL) Urine Leukocyte Esterase Negative (NEG) Urine RBC 0 /HPF (0-2) Urine WBC 0 /HPF (0-4) Urine Squamous Epithelial Cells Few /LPF Urine Bacteria 0 /HPF (0-FEW) Urine Mucus Slight /LPF Troponin I Quantitative 0.041 ng/mL (0.000-0.055) 0.026 ng/mL (0.000-0.055) White Blood Count 2.6 x10^3/uL (4.0-11.0) L Red Blood Count 4.54 x10^6/uL (3.50-5.40) Hemoglobin 12.4 g/dL (12.0-15.5) Hematocrit 38.2 % (36.0-47.0) Mean Corpuscular Volume 84 fL (79-100) Mean Corpuscular Hemoglobin 27 pg (25-35) Mean Corpuscular Hemoglobin Concent 33 g/dL (31-37) Red Cell Distribution Width 15.9 % (11.5-14.5) H Platelet Count 122 x10^3/uL (140-400) L Neutrophils (%) (Auto) 55 % (31-73) Lymphocytes (%) (Auto) 31 % (24-48) Monocytes (%) (Auto) 13 % (0-9) H Eosinophils (%) (Auto) 0 % (0-3) Basophils (%) (Auto) 1 % (0-3) Neutrophils # (Auto) 1.5 x10^3/uL (1.8-7.7) L Lymphocytes # (Auto) 0.8 x10^3/uL (1.0-4.8) L Monocytes # (Auto) 0.3 x10^3/uL (0.0-1.1) Eosinophils # (Auto) 0.0 x10^3/uL (0.0-0.7) Basophils # (Auto) 0.0 x10^3/uL (0.0-0.2) Sodium Level 144 mmol/L (136-145) Potassium Level 3.2 mmol/L (3.5-5.1) L Chloride Level 104 mmol/L (98-107) Carbon Dioxide Level 31 mmol/L (21-32) Anion Gap 9 (6-14) Blood Urea Nitrogen 14 mg/dL (7-20) Creatinine 0.8 mg/dL (0.6-1.0) Estimated GFR (Cockcroft-Gault) 83.3 Glucose Level 92 mg/dL (70-99) Calcium Level 8.4 mg/dL (8.5-10.1) L Phosphorus Level 3.0 mg/dL (2.6-4.7) Magnesium Level 2.0 mg/dL (1.8-2.4) Laboratory Tests 07/17/20 07:40 Laboratory Tests 07/17/20 07:40 HEART CATH HEART CATH Conclusion 1. Elevated left sided filling pressures. 2. Two vessel CAD (Involving the LAD and OM1) 3. Negative FFR of the LAD. (No significant ischemia) Recommendations Aggressive medical therapy Gentle diuresis. Case discussed with family. DATE: 10/28/15 1116 ASSESSMENT/PLAN ASSESSMENT/PLAN 1. Syncope with no injury: vasovagal vs encephalopathy. Doubt related to arrhythmia, no ectopies so far 2. HTN encephalopathy with associated dementia 3. Accelerated HTN: likely from missed meds 4. CAD: 2VD in 2016 no intervention. trops nml. EKG SR without acute changes 5. Hx of PE with chronic xarelto use. CT neg for PE 6. Coagulopathy: INR 2 7. Leukopenia 8. PUI 9. Hypokalemia Recommendations 1. No bradycardia issues. Continue home BP regimen including coreg. Monitor BP trend. Discussed with RN check BP on both arms. Labetolol PRN 2. ASA. Check lipids start on statin. 3. TTE if covid neg 4. JUDIE Andino APRN Jul 17, 2020 13:59
[2020-07-17 14:49] LABS: CHOLESTEROL/HDL RATIO 3.1
[2020-07-17 15:06] VITALS: BP 233/96
[2020-07-17] MEDS: RIVAROXABAN 10 MG TABLET. PO SCH (16:35)
[2020-07-17 19:00] VITALS: BP 166/101
[2020-07-17] MEDS: ATORVASTATIN CALCIUM 20 MG TABLET PO SCH (21:34)
[2020-07-17 23:09] VITALS: BP 178/90
[2020-07-18] VITALS (7 sets, daily range): BP systolic 134–207; BP diastolic 55–100
[2020-07-18] MEDS: DONEPEZIL HCL 5 MG TABLET. PO SCH (08:45)
[2020-07-18] MEDS: amLODIPine BESYLATE 10 MG TABLET PO SCH (08:45)
[2020-07-18] MEDS: CARVEDILOL 12.5 MG TABLET. PO SCH ×2 (08:45→17:22)
[2020-07-18] MEDS: GABAPENTIN 300 MG CAPSULE. PO SCH ×3 (08:45→20:11)
--- NOTE | 2020-07-18 10:19 | PDOC ---
[employer] PROGRESS NOTE Date of Service DOS: DATE: 07/18/20 TIME: 10:17 Chief Complaint Chief Complaint Syncope due to vasovagal etiology, orthostatic hypotension, cardiovascular etiology, seizure, stroke, migraine, hypoglycemia, hypoxia, anemia, medications. Prodromal symptoms unknown, Post syncope symptoms include nausea vomiting and epigastric pain Abnormal EKG Hypoxia Investigation for Covid infection Severe dementia Leukopenia Hypokalemia BOLIVAR due to vasomotor nephropathy History of Present Illness History of Present Illness 07/18/2020 Patient seen and examined on the [facility] floor She is eating breakfast pleasantly confused Covid test is still pending Discussed with RN Chart reviewed 07/17/2020 Patient seen and examined on the [place] [id number] floor Her Covid swab is still pending She is pleasantly confused Blood pressure running in the 200s but we got it down to 177 with some labetalol and resumption of her Coreg I had the nurse go ahead and start Norvasc 10 p.o. daily as well Her potassium is little low we are going to replace that Vitals/I&O Vitals/I&O: Vital Signs Date Time Temp Pulse Resp B/P (MAP) Pulse Ox O2 Delivery O2 Flow Rate FiO2 07/18/20 08:45 68 193/75 07/18/20 07:00 98.9 18 Nasal Cannula 3.0 98.9 07/18/20 03:31 92 I & O 07/17/20 07/17/20 07/18/20 15:00 23:00 07:00 Intake Total 240 ml 280 ml 200 ml Balance 240 ml 280 ml 200 ml Physical Exam General: Cooperative, No acute distress, Other (Pleasantly confused) Heart: Regular rate (SR), Normal S1, Normal S2, No murmurs Lungs: Wheezing Abdomen: Soft, No tenderness Extremities: No cyanosis, No edema Skin: No breakdown, No significant lesion Assessment and Plan Assessmemt and Plan Problems Medical Problems: (1) Hypoxia Status: Acute (2) Suspected 2019 novel coronavirus infection Status: Acute (3) Syncope Status: Acute Syncope due to vasovagal etiology, orthostatic hypotension, cardiovascular etiology, seizure, stroke, migraine, hypoglycemia, hypoxia, anemia, medications. Prodromal symptoms unknown, Post syncope symptoms include nausea vomiting and epigastric pain Abnormal EKG Hypoxia Investigation for Covid infection Severe dementia Leukopenia Hypokalemia BOLIVAR due to vasomotor nephropathy Plan Consult cardiology Replace potassium Add Norvasc Continue as needed labetalol Home meds Await COVID-19 testing Pending echocardiogram after Covid test negative Continue telemetry monitoring Fall precautions Orthostatic vital signs Hold all centrally acting medications Pending medication reconciliation Lovenox for DVT prophylaxis Cardiac diet Full code Discussed with RN and SW Disposition pending cardiac evaluation Surrogate decision maker is Ruth Kerr Comment Review of Relevant I have reviewed the following items antonio (where applicable) has been applied. Medications: Current Medications Medications (Trade) Dose Ordered Sig/Magdalene Route PRN Reason Start Time Stop Time Status Last Admin Dose Admin Rivaroxaban (Xarelto) 20 mg DAILYWSUP PO 07/17/20 17:00 07/17/20 16:35 Potassium Chloride (Klor-Con) 40 meq 1X ONCE PO 07/17/20 11:00 07/17/20 11:01 DC 07/17/20 11:48 Amlodipine Besylate (Norvasc) 10 mg DAILY PO 07/17/20 11:00 07/18/20 08:45 Atorvastatin Calcium (Lipitor) 20 mg QHS PO 07/17/20 21:00 07/17/20 21:34 Justifications for Admission Syncope Indications AV Block?: Yes Justification for admission: Patient has concerning symptoms associated with conduction system disease such as 2nd degree AV block, Type 2 or 3rd-degree AV block and will require inpatient level of care for further evaluation and management. Is patient dehydrated?: Yes Justification for admission: There is concern that patient may be severely dehydrated accounting for the syncope. Patient needs inpatient level of care for further evaluation and management. Other Justification VENECIA PERAZA III DO Jul 18, 2020 10:19
[2020-07-18] MEDS: LABETALOL 20 MG/4 ML DISP.SYRIN. IVP PRN ×2 (11:41→22:45)
[2020-07-18] MEDS: ACETAMINOPHEN 325 MG TABLET. PO PRN ×2 (11:41→22:42)
[2020-07-18] MEDS ORDERED: POTASSIUM CHLORIDE 20 MEQ TABLET.ER. PO ONE (16:30)
[2020-07-18] MEDS: IV NORMAL SALINE 1000ML BAG 1,000 ML IV SCH ×2 (17:21→19:45)
[2020-07-18] MEDS: RIVAROXABAN 10 MG TABLET. PO SCH (17:22)
[2020-07-18] MEDS: ATORVASTATIN CALCIUM 20 MG TABLET PO SCH (20:12)
[2020-07-19] VITALS (7 sets, daily range): BP systolic 140–207; BP diastolic 68–96
[2020-07-19] MEDS: IV NORMAL SALINE 1000ML BAG 1,000 ML IV SCH ×2 (03:45→16:07)
[2020-07-19] MEDS: LABETALOL 20 MG/4 ML DISP.SYRIN. IVP PRN (06:33)
[2020-07-19 08:06] LABS: BASO % 0 % (0-3); EOS % 0 % (0-3); HEMATOCRIT 39.8 % (36.0-47.0); HEMOGLOBIN 13.3 g/dL (12.0-15.5); LYMPH # 0.7 x10^3/uL (1.0-4.8); LYMPH % 26 % (24-48); MEAN CORPUSCULAR HEMOGLOBIN 28 pg (25-35); MEAN CORPUSCULAR HGB CONC 33 g/dL (31-37); MEAN CORPUSCULAR VOLUME 83 fL (79-100); MONO # 0.2 x10^3/uL (0.0-1.1); MONO % 8 % (0-9); NEUT # 1.7 x10^3/uL (1.8-7.7); NEUT % 65 % (31-73); PLATELET COUNT 119 x10^3/uL (140-400); RED BLOOD COUNT 4.77 x10^6/uL (3.50-5.40); RED CELL DISTRIBUTION WIDTH 15.8 % (11.5-14.5); WHITE BLOOD COUNT 2.6 x10^3/uL (4.0-11.0)
[2020-07-19 08:35] LABS: CALCIUM 8.2 mg/dL (8.5-10.1); CREATININE 0.7 mg/dL (0.6-1.0); GFR 97.2; POTASSIUM 3.1 mmol/L (3.5-5.1)
[2020-07-19] MEDS: DONEPEZIL HCL 5 MG TABLET. PO SCH (09:54)
[2020-07-19] MEDS: amLODIPine BESYLATE 10 MG TABLET PO SCH (09:54)
[2020-07-19] MEDS: GABAPENTIN 300 MG CAPSULE. PO SCH ×3 (09:55→20:32)
[2020-07-19] MEDS: CARVEDILOL 12.5 MG TABLET. PO SCH ×2 (09:55→17:05)
[2020-07-19] MEDS ORDERED: guaiFENesin/CODEINE 100mg/10mg 5 ML LIQUID PO PRN (11:15)
[2020-07-19] MEDS ORDERED: cefTRIAXone IV Push 1 GM VIAL. IVP SCH (11:15)
--- NOTE | 2020-07-19 11:17 | PDOC ---
[employer] PROGRESS NOTE Date of Service DOS: DATE: 07/19/20 TIME: 11:15 Chief Complaint Chief Complaint Syncope COVID-19 positive Abnormal EKG Hypoxia Investigation for Covid infection Severe dementia Leukopenia Hypokalemia BOLIVAR due to vasomotor nephropathy History of Present Illness History of Present Illness 07/19/2020 Patient seen and examined COVID-19 4 Her Covid test is positive I added in Covid protocol medications (Solu-Medrol vitamins codeine cough syrup aspirin etc.) 07/18/2020 Patient seen and examined on the COVID-19 floor She is eating breakfast pleasantly confused Covid test is still pending Discussed with RN Chart reviewed 07/17/2020 Patient seen and examined on the COVID-19 floor Her Covid swab is still pending She is pleasantly confused Blood pressure running in the 200s but we got it down to 177 with some labetalol and resumption of her Coreg I had the nurse go ahead and start Norvasc 10 p.o. daily as well Her potassium is little low we are going to replace that Vitals/I&O Vitals/I&O: Vital Signs Date Time Temp Pulse Resp B/P (MAP) Pulse Ox O2 Delivery O2 Flow Rate FiO2 07/19/20 11:00 101.7 80 20 150/78 (102) 91 Room Air 101.7 07/18/20 10:46 3.0 I & O 07/18/20 07/18/20 07/19/20 15:00 23:00 07:00 Intake Total 50 ml 1100 ml 100 ml Balance 50 ml 1100 ml 100 ml Physical Exam General: Cooperative, No acute distress, Other (Pleasantly confused) Heart: Regular rate (SR), Normal S1, Normal S2, No murmurs Lungs: Wheezing Abdomen: Soft, No tenderness Extremities: No cyanosis, No edema Skin: No breakdown, No significant lesion Labs Labs: Laboratory Tests Test 07/19/20 07:22 White Blood Count 2.6 x10^3/uL (4.0-11.0) Red Blood Count 4.77 x10^6/uL (3.50-5.40) Hemoglobin 13.3 g/dL (12.0-15.5) Hematocrit 39.8 % (36.0-47.0) Mean Corpuscular Volume 83 fL (79-100) Mean Corpuscular Hemoglobin 28 pg (25-35) Mean Corpuscular Hemoglobin Concent 33 g/dL (31-37) Red Cell Distribution Width 15.8 % (11.5-14.5) Platelet Count 119 x10^3/uL (140-400) Neutrophils (%) (Auto) 65 % (31-73) Lymphocytes (%) (Auto) 26 % (24-48) Monocytes (%) (Auto) 8 % (0-9) Eosinophils (%) (Auto) 0 % (0-3) Basophils (%) (Auto) 0 % (0-3) Neutrophils # (Auto) 1.7 x10^3/uL (1.8-7.7) Lymphocytes # (Auto) 0.7 x10^3/uL (1.0-4.8) Monocytes # (Auto) 0.2 x10^3/uL (0.0-1.1) Eosinophils # (Auto) 0.0 x10^3/uL (0.0-0.7) Basophils # (Auto) 0.0 x10^3/uL (0.0-0.2) Sodium Level 139 mmol/L (136-145) Potassium Level 3.1 mmol/L (3.5-5.1) Chloride Level 101 mmol/L (98-107) Carbon Dioxide Level 30 mmol/L (21-32) Anion Gap 8 (6-14) Blood Urea Nitrogen 9 mg/dL (7-20) Creatinine 0.7 mg/dL (0.6-1.0) Estimated GFR (Cockcroft-Gault) 97.2 Glucose Level 94 mg/dL (70-99) Calcium Level 8.2 mg/dL (8.5-10.1) Assessment and Plan Assessmemt and Plan Problems Medical Problems: (1) Hypoxia Status: Acute (2) Suspected 2019 novel coronavirus infection Status: Acute (3) Syncope Status: Acute Syncope COVID-19 positive Abnormal EKG Hypoxia Investigation for Covid infection Severe dementia Leukopenia Hypokalemia BOLIVAR due to vasomotor nephropathy Plan Cardiology following Respiratory isolation Covid protocol including Rocephin oxygen steroids codeine cough syrup aspirin e tc. Replaced potassium Added Norvasc Continue as needed labetalol Home meds Pending echocardiogram after Covid test negative Continue telemetry monitoring Fall precautions Orthostatic vital signs Hold all centrally acting medications Lovenox for DVT prophylaxis Cardiac diet Full code Comment Review of Relevant I have reviewed the following items antonio (where applicable) has been applied. Medications: Current Medications Medications (Trade) Dose Ordered Sig/Magdalene Route PRN Reason Start Time Stop Time Status Last Admin Dose Admin Potassium Chloride (Klor-Con) 40 meq 1X ONCE PO 07/18/20 16:30 07/18/20 16:31 DC 07/18/20 17:21 Justifications for Admission Syncope Indications AV Block?: Yes Justification for admission: Patient has concerning symptoms associated with conduction system disease such as 2nd degree AV block, Type 2 or 3rd-degree AV block and will require inpatient level of care for further evaluation and management. Is patient dehydrated?: Yes Justification for admission: There is concern that patient may be severely dehydrated accounting for the syncope. Patient needs inpatient level of care for further evaluation and management. Other Justification VENECIA PERAZA III DO Jul 19, 2020 11:17
[2020-07-19] MEDS: methylPREDNISolone SOD SUCC PF 40 MG/ML VIAL. IV SCH (11:37)
[2020-07-19] MEDS: MULTIVITAMIN with MINERAL TABLET. PO SCH (11:37)
[2020-07-19] MEDS: ASPIRIN CHEWABLE 81 MG TABLET. PO SCH (11:37)
[2020-07-19] MEDS: ACETAMINOPHEN 325 MG TABLET. PO PRN (12:42)
[2020-07-19] MEDS ORDERED: AZITHROMYCIN 250 MG TABLET. PO ONE (14:00)
[2020-07-19] MEDS: RIVAROXABAN 10 MG TABLET. PO SCH (17:05)
[2020-07-19] MEDS ORDERED: POTASSIUM CHLORIDE 20 MEQ TABLET.ER. PO ONE (18:30)
[2020-07-19] MEDS: ATORVASTATIN CALCIUM 20 MG TABLET PO SCH (20:32)
[2020-07-20] VITALS (9 sets, daily range): BP systolic 147–169; BP diastolic 64–89
[2020-07-20 04:57] LABS: BASO % 0 % (0-3); EOS % 0 % (0-3); HEMATOCRIT 35.5 % (36.0-47.0); HEMOGLOBIN 11.9 g/dL (12.0-15.5); LYMPH # 0.7 x10^3/uL (1.0-4.8); LYMPH % 20 % (24-48); MEAN CORPUSCULAR HEMOGLOBIN 28 pg (25-35); MEAN CORPUSCULAR HGB CONC 34 g/dL (31-37); MEAN CORPUSCULAR VOLUME 83 fL (79-100); MONO # 0.3 x10^3/uL (0.0-1.1); MONO % 10 % (0-9); NEUT # 2.5 x10^3/uL (1.8-7.7); NEUT % 70 % (31-73); PLATELET COUNT 115 x10^3/uL (140-400); RED BLOOD COUNT 4.29 x10^6/uL (3.50-5.40); RED CELL DISTRIBUTION WIDTH 16.1 % (11.5-14.5); WHITE BLOOD COUNT 3.6 x10^3/uL (4.0-11.0)
[2020-07-20 05:37] LABS: CALCIUM 8.1 mg/dL (8.5-10.1); CREATININE 1.2 mg/dL (0.6-1.0); GFR 52.2; POTASSIUM 3.3 mmol/L (3.5-5.1)
[2020-07-20] MEDS: IV NORMAL SALINE 1000ML BAG 1,000 ML IV SCH ×4 (06:29→21:57)
[2020-07-20] MEDS: methylPREDNISolone SOD SUCC PF 40 MG/ML VIAL. IV SCH (09:30)
[2020-07-20] MEDS: MULTIVITAMIN with MINERAL TABLET. PO SCH (09:30)
[2020-07-20] MEDS: AZITHROMYCIN 250 MG TABLET. PO SCH (09:31)
[2020-07-20] MEDS: DONEPEZIL HCL 5 MG TABLET. PO SCH (09:31)
[2020-07-20] MEDS: amLODIPine BESYLATE 10 MG TABLET PO SCH (09:31)
[2020-07-20] MEDS: CARVEDILOL 12.5 MG TABLET. PO SCH ×2 (09:31→16:47)
[2020-07-20] MEDS: GABAPENTIN 300 MG CAPSULE. PO SCH ×3 (09:31→21:55)
[2020-07-20] MEDS: ASPIRIN CHEWABLE 81 MG TABLET. PO SCH (09:31)
--- NOTE | 2020-07-20 11:56 | NUR ---
GILBERTO following for discharge planning. Spoke with RN and reviewed chart. COVID results came back positive. PT/OT recommendation is for SNU. Spoke with daughter Ilda who continues to decline SNU but would like [facility] on discharge. Pt to discharge home today, 07/20. GILBERTO phoned and faxed referral. Patient choice of vendor form completed. GILBERTO following. Addendum: 07/20/20 at 1437 by BLANCA MACIAS Spoke with Clive BIANCHI and pt has been accepted. Pt on room air, no 6 min walk needed.
--- NOTE | 2020-07-20 12:11 | PDOC ---
[employer] PROGRESS NOTE Date of Service DOS: DATE: 07/20/20 TIME: 12:09 Chief Complaint Chief Complaint Syncope COVID-19 positive Abnormal EKG Hypoxia Investigation for Covid infection Severe dementia Leukopenia Hypokalemia BOLIVAR due to vasomotor nephropathy History of Present Illness History of Present Illness 07/20/2020 Patient seen and evaluated. She is COVID-19 positive, currently breathing comfortably on room air. We will obtain 6-minute walk to determine if any further oxygen requirement is needed. Will order echocardiogram today to evaluate cardiac etiology of syncope. 07/19/2020 Patient seen and examined COVID-19 4 Her Covid test is positive I added in Covid protocol medications (Solu-Medrol vitamins codeine cough syrup aspirin etc.) 07/18/2020 Patient seen and examined on the COVID-19 floor She is eating breakfast pleasantly confused Covid test is still pending Discussed with RN Chart reviewed 07/17/2020 Patient seen and examined on the COVID- floor Her Covid swab is still pending She is pleasantly confused Blood pressure running in the 200s but we got it down to 177 with some labetalol and resumption of her Coreg I had the nurse go ahead and start Norvasc 10 p.o. daily as well Her potassium is little low we are going to replace that Vitals/I&O Vitals/I&O: Vital Signs Date Time Temp Pulse Resp B/P (MAP) Pulse Ox O2 Delivery O2 Flow Rate FiO2 07/20/20 10:56 98.5 93 18 161/69 (99) 95 Room Air 98.5 07/20/20 07:00 1.0 I & O 07/19/20 07/19/20 07/20/20 15:00 23:00 07:00 Intake Total 150 ml 50 ml 0 ml Balance 150 ml 50 ml 0 ml Physical Exam General: Cooperative, No acute distress, Other (Pleasantly confused) Heart: Regular rate (SR), Normal S1, Normal S2, No murmurs Lungs: Wheezing Abdomen: Soft, No tenderness Extremities: No cyanosis, No edema Skin: No breakdown, No significant lesion Labs Labs: Laboratory Tests Test 07/20/20 03:30 White Blood Count 3.6 x10^3/uL (4.0-11.0) Red Blood Count 4.29 x10^6/uL (3.50-5.40) Hemoglobin 11.9 g/dL (12.0-15.5) Hematocrit 35.5 % (36.0-47.0) Mean Corpuscular Volume 83 fL (79-100) Mean Corpuscular Hemoglobin 28 pg (25-35) Mean Corpuscular Hemoglobin Concent 34 g/dL (31-37) Red Cell Distribution Width 16.1 % (11.5-14.5) Platelet Count 115 x10^3/uL (140-400) Neutrophils (%) (Auto) 70 % (31-73) Lymphocytes (%) (Auto) 20 % (24-48) Monocytes (%) (Auto) 10 % (0-9) Eosinophils (%) (Auto) 0 % (0-3) Basophils (%) (Auto) 0 % (0-3) Neutrophils # (Auto) 2.5 x10^3/uL (1.8-7.7) Lymphocytes # (Auto) 0.7 x10^3/uL (1.0-4.8) Monocytes # (Auto) 0.3 x10^3/uL (0.0-1.1) Eosinophils # (Auto) 0.0 x10^3/uL (0.0-0.7) Basophils # (Auto) 0.0 x10^3/uL (0.0-0.2) Sodium Level 142 mmol/L (136-145) Potassium Level 3.3 mmol/L (3.5-5.1) Chloride Level 105 mmol/L (98-107) Carbon Dioxide Level 27 mmol/L (21-32) Anion Gap 10 (6-14) Blood Urea Nitrogen 22 mg/dL (7-20) Creatinine 1.2 mg/dL (0.6-1.0) Estimated GFR (Cockcroft-Gault) 52.2 Glucose Level 124 mg/dL (70-99) Calcium Level 8.1 mg/dL (8.5-10.1) Review of Systems Review of Systems: Denies fever, denies chest pain, denies shortness of breath. Assessment and Plan Assessmemt and Plan Problems Medical Problems: (1) Hypoxia Status: Acute (2) Suspected 2019 novel coronavirus infection Status: Acute (3) Syncope Status: Acute Comment Review of Relevant I have reviewed the following items antonio (where applicable) has been applied. Medications: Current Medications Medications (Trade) Dose Ordered Sig/Magdalene Route PRN Reason Start Time Stop Time Status Last Admin Dose Admin Azithromycin (Zithromax) 500 mg 1X ONCE PO 07/19/20 14:00 07/19/20 14:01 DC 07/19/20 13:52 Azithromycin (Zithromax) 250 mg DAILY PO 07/20/20 09:00 07/23/20 09:01 07/20/20 09:31 Potassium Chloride (Klor-Con) 40 meq 1X ONCE PO 07/19/20 18:30 07/19/20 18:31 DC 07/19/20 20:33 Justifications for Admission Syncope Indications AV Block?: Yes Justification for admission: Patient has concerning symptoms associated with conduction system disease such as 2nd degree AV block, Type 2 or 3rd-degree AV block and will require inpatient level of care for further evaluation and management. Is patient dehydrated?: Yes Justification for admission: There is concern that patient may be severely dehydrated accounting for the syncope. Patient needs inpatient level of care for further evaluation and management. Other Justification ARCHANA BOWENS MD Jul 20, 2020 12:11
--- NOTE | 2020-07-20 15:20 | PDOC ---
CARDIO Progress Notes Date and Time Date of Service 07/20/20 Time of Evaluation 1210 Subjective Subjective: No Chest Pain, No shortness of breath, No Palpitations, No Dizziness Vitals Vitals Vital Signs Date Time Temp Pulse Resp B/P (MAP) Pulse Ox O2 Delivery O2 Flow Rate FiO2 07/20/20 14:40 81 162/77 (105) 07/20/20 14:15 97.3 18 96 Room Air 97.3 07/20/20 07:00 1.0 Weight Weight [ ] Input and Output Intake and Output Intake and Output 07/20/20 06:59 Intake Total 200 ml Balance 200 ml Intake Oral 200 ml # Voids 3 Laboratory Labs Laboratory Tests Test 07/20/20 03:30 White Blood Count 3.6 x10^3/uL (4.0-11.0) Red Blood Count 4.29 x10^6/uL (3.50-5.40) Hemoglobin 11.9 g/dL (12.0-15.5) Hematocrit 35.5 % (36.0-47.0) Mean Corpuscular Volume 83 fL (79-100) Mean Corpuscular Hemoglobin 28 pg (25-35) Mean Corpuscular Hemoglobin Concent 34 g/dL (31-37) Red Cell Distribution Width 16.1 % (11.5-14.5) Platelet Count 115 x10^3/uL (140-400) Neutrophils (%) (Auto) 70 % (31-73) Lymphocytes (%) (Auto) 20 % (24-48) Monocytes (%) (Auto) 10 % (0-9) Eosinophils (%) (Auto) 0 % (0-3) Basophils (%) (Auto) 0 % (0-3) Neutrophils # (Auto) 2.5 x10^3/uL (1.8-7.7) Lymphocytes # (Auto) 0.7 x10^3/uL (1.0-4.8) Monocytes # (Auto) 0.3 x10^3/uL (0.0-1.1) Eosinophils # (Auto) 0.0 x10^3/uL (0.0-0.7) Basophils # (Auto) 0.0 x10^3/uL (0.0-0.2) Sodium Level 142 mmol/L (136-145) Potassium Level 3.3 mmol/L (3.5-5.1) Chloride Level 105 mmol/L (98-107) Carbon Dioxide Level 27 mmol/L (21-32) Anion Gap 10 (6-14) Blood Urea Nitrogen 22 mg/dL (7-20) Creatinine 1.2 mg/dL (0.6-1.0) Estimated GFR (Cockcroft-Gault) 52.2 Glucose Level 124 mg/dL (70-99) Calcium Level 8.1 mg/dL (8.5-10.1) Microbiology Micro Microbiology 07/16/20 Blood Culture - Preliminary, Resulted NO GROWTH AFTER 4 DAYS Physical Exam HEENT: Neck Supple W Full Motion Chest: Symmetric LUNGS: Other (on RA) Heart: RRR Neurology: alert, follow commands, confused Assessment Assessment 1. Syncopal episode: etiology unclear. possible vasovagal. Doubt related to arrhythmia, no ectopies note on tele 2. HTN encephalopathy with associated dementia 3. Accelerated HTN: better controlled, but remains mildly elevated 4. CAD: 2VD in 2016 no intervention. trops nml. EKG SR without acute changes 5. Hx of PE with chronic xarelto use. CT neg for PE 6. Hyperlipidemia; statin 7. Leukopenia 8. PUI; COVID + Recommendations Continue coreg, amlodipine. Allergy to ARB Add hydralazine for better BP control Secondary prevention measures. ASA/statin therapy Outpatient echo when recovered from COVID Supportive care Justicifation of Admission Dx: Justifications for Admission: Justification of Admission Dx: Yes Comments: syncope, leukopenia, COVID CAMPBELL AUGUSTIN APRN Jul 20, 2020 15:20
[2020-07-20] MEDS: RIVAROXABAN 10 MG TABLET. PO SCH (16:47)
[2020-07-20] MEDS: ATORVASTATIN CALCIUM 20 MG TABLET PO SCH (21:55)
[2020-07-21 03:00] VITALS: BP 190/88
[2020-07-21] MEDS: LABETALOL 20 MG/4 ML DISP.SYRIN. IVP PRN (03:14)
[2020-07-21 07:00] VITALS: BP 182/78
--- NOTE | 2020-07-21 07:36 | PDOC ---
[employer] PROGRESS NOTE Date of Service DOS: DATE: 07/21/20 TIME: 07:27 Chief Complaint Chief Complaint Syncope COVID-19 positive Abnormal EKG Hypoxia Investigation for Covid infection Severe dementia Leukopenia Hypokalemia BOLIVAR due to vasomotor nephropathy History of Present Illness History of Present Illness 07/21/2020 Patient seen and evaluated. COVID-19 positive, breathing on room air. Fever this morning, improved with Tylenol. Patient recommended outpatient echocardiogram once she is COVID-19 recovered. Suspect etiology of syncope secondary to severe dehydration. Plan to discharge patient to SNU. Greater than 30 minutes with admission discharge this patient. 07/20/2020 Patient seen and evaluated. She is COVID-19 positive, currently breathing comfortably on room air. We will obtain 6-minute walk to determine if any further oxygen requirement is needed. Will order echocardiogram today to evaluate cardiac etiology of syncope. 07/19/2020 Patient seen and examined COVID-19 4 Her Covid test is positive I added in Covid protocol medications (Solu-Medrol vitamins codeine cough syrup aspirin etc.) 07/18/2020 Patient seen and examined on the COVID-19 floor She is eating breakfast pleasantly confused Covid test is still pending Discussed with RN Chart reviewed 07/17/2020 Patient seen and examined on the COVID-19 floor Her Covid swab is still pending She is pleasantly confused Blood pressure running in the 200s but we got it down to 177 with some labetalol and resumption of her Coreg I had the nurse go ahead and start Norvasc 10 p.o. daily as well Her potassium is little low we are going to replace that Vitals/I&O Vitals/I&O: Vital Signs Date Time Temp Pulse Resp B/P (MAP) Pulse Ox O2 Delivery O2 Flow Rate FiO2 07/21/20 03:14 85 190/88 07/21/20 03:00 98.7 26 96 Room Air 98.7 07/20/20 07:00 1.0 I & O 07/20/20 07/20/20 07/21/20 15:00 23:00 07:00 Intake Total 220 ml 120 ml 1000 ml Balance 220 ml 120 ml 1000 ml Physical Exam General: Cooperative, No acute distress, Other (Pleasantly confused) Heart: Regular rate (SR), Normal S1, Normal S2, No murmurs Lungs: Wheezing Abdomen: Soft, No tenderness Extremities: No cyanosis, No edema Skin: No breakdown, No significant lesion Review of Systems Review of Systems: Denies fever, denies chest pain, denies nausea. Assessment and Plan Assessmemt and Plan Problems Medical Problems: (1) Hypoxia Status: Acute (2) Suspected 2019 novel coronavirus infection Status: Acute (3) Syncope Status: Acute Comment Review of Relevant I have reviewed the following items antonio (where applicable) has been applied. Medications: Current Medications Medications (Trade) Dose Ordered Sig/Magdalene Route PRN Reason Start Time Stop Time Status Last Admin Dose Admin Azithromycin (Zithromax) 250 mg DAILY PO 07/20/20 09:00 07/23/20 09:01 07/20/20 09:31 Hydralazine HCl (Apresoline) 50 mg BID PO 07/20/20 21:00 07/20/20 21:56 Justifications for Admission Syncope Indications AV Block?: Yes Justification for admission: Patient has concerning symptoms associated with conduction system disease such as 2nd degree AV block, Type 2 or 3rd-degree AV block and will require inpatient level of care for further evaluation and management. Is patient dehydrated?: Yes Justification for admission: There is concern that patient may be severely dehydrated accounting for the syncope. Patient needs inpatient level of care for further evaluation and management. Other Justification ARCHANA BOWENS MD Jul 21, 2020 07:36
[2020-07-21] MEDS: MULTIVITAMIN with MINERAL TABLET. PO SCH (08:46)
[2020-07-21] MEDS: AZITHROMYCIN 250 MG TABLET. PO SCH (08:46)
[2020-07-21] MEDS: DONEPEZIL HCL 5 MG TABLET. PO SCH (08:46)
[2020-07-21] MEDS: amLODIPine BESYLATE 10 MG TABLET PO SCH (08:46)
[2020-07-21] MEDS: ASPIRIN CHEWABLE 81 MG TABLET. PO SCH (08:46)
[2020-07-21] MEDS: CARVEDILOL 12.5 MG TABLET. PO SCH (08:47)
[2020-07-21] MEDS: GABAPENTIN 300 MG CAPSULE. PO SCH (08:47)
[2020-07-21 09:07] LABS: BASO % 0 % (0-3); EOS % 0 % (0-3); HEMATOCRIT 39.5 % (36.0-47.0); HEMOGLOBIN 13.3 g/dL (12.0-15.5); LYMPH # 0.6 x10^3/uL (1.0-4.8); LYMPH % 14 % (24-48); MEAN CORPUSCULAR HEMOGLOBIN 28 pg (25-35); MEAN CORPUSCULAR HGB CONC 34 g/dL (31-37); MEAN CORPUSCULAR VOLUME 83 fL (79-100); MONO # 0.3 x10^3/uL (0.0-1.1); MONO % 7 % (0-9); NEUT # 3.5 x10^3/uL (1.8-7.7); NEUT % 79 % (31-73); PLATELET COUNT 146 x10^3/uL (140-400); WHITE BLOOD COUNT 4.4 x10^3/uL (4.0-11.0)
[2020-07-21 09:30] LABS: CALCIUM 8.1 mg/dL (8.5-10.1); CREATININE 0.8 mg/dL (0.6-1.0); GFR 83.3
[2020-07-21 09:33] LABS: POTASSIUM 2.9 mmol/L (3.5-5.1)
[2020-07-21] MEDS ORDERED: POTASSIUM BICARB 20 MEQ EFFERVESCENT TABLET. PO ONE (09:45)
--- NOTE | 2020-07-21 10:44 | NUR ---
SW following for discharge planning. Spoke with RN and reviewed chart. Discharge home with HH held yesterday. Daughter Ilda called and stated she has COVID and can't care for pt. Daughter requesting SNU referral to [facility]. Spoke with Sandie at [facility] and they have a bed. Phoned and faxed referral. SW awaiting final acceptance decision. Patient choice of vendor form completed. [facility] notified of cancelled discharge home with . SW following. Addendum: 07/21/20 at 1311 by BLANCA MACIAS Pt accepted for discharge to [facility] SNU today, 07/21. Discharge orders phoned and faxed. Transportation arranged by Sandie at the facility for 1400. Daughter notified. No further SW needs at this time.
[2020-07-21] MEDS: ACETAMINOPHEN 325 MG TABLET. PO PRN (10:51)
[2020-07-21 11:00] VITALS: BP 115/50
[2020-07-21] MEDS: IV NORMAL SALINE 1000ML BAG 1,000 ML IV SCH (11:06)
[2020-07-21] MEDS ORDERED: HYDR-2869 PO (12:20)
--- NOTE | 2020-07-21 12:22 | SNU/HH DC ---
DISCHARGE ORDERS DISCHARGE INFORMATION: DISCHARGE DATE: Jul 21, 2020 FINAL DIAGNOSIS Problems Medical Problems: (1) Hypoxia Status: Acute (2) Suspected 2019 novel coronavirus infection Status: Acute (3) Syncope Status: Acute CONDITION ON DISCHARGE: Stable CODE STATUS: Code Status: DNR/DNI CUSTODIAL: SNF STAY <30 DAYS: Yes POST DISCHARGE ORDERS: ACTIVITY ORDERS: No restrictions DIET AFTER DISCHARGE: Cardiac CHECKS AFTER DISCHARGE: CHECKS AFTER DISCHARGE: Check blood press - daily TREATMENT/EQUIPMENT ORDERS: Physical Therapy For: Evalulation/Treatment DISCHARGE MEDICATIONS: Home Meds Active Scripts Hydralazine Hcl (HYDRALAZINE HCL) 50 Mg Tablet, 50 MG PO BID for HTN, #60 TAB 2 Refills Prov:ARCHANA BOWENS MD 07/21/20 Carvedilol (CARVEDILOL ) 12.5 Mg Tablet, 12.5 MG PO BIDWMEALS, #30 Prov:ROBERT MONTAÑO MD 10/28/15 Reported Medications Carvedilol (CARVEDILOL) 25 Mg Tablet, 1 TAB PO BID for cad 07/17/20 Donepezil Hcl (DONEPEZIL HCL) 5 Mg Tablet, 1 TAB PO DAILY, #30 TAB 5 Refills LAST DOSE: 10/28/15 AM NEXT DOSE: 10/29/15 AM 10/27/15 Gabapentin (GABAPENTIN ) 300 Mg Capsule, 300 MG PO TID, CAP LAST DOSE: 10/28/15 AM NEXT DOSE: 10/28/15 2PM 10/27/15 Rivaroxaban (XARELTO) 20 Mg Tablet, 20 MG PO DAILY NEXT DOSE: 10/29/1510/27/15 Potassium Chloride (POTASSIUM CHLORIDE) 20 Meq Tab.er.prt, 1 TAB PO BID, #180 TAB 3 Refills LAST DOSE: 10/28/15 NEXT DOSE: 10/28/15 AFTERNOON 05/01/15 Aspirin (ASPIR 81) 81 Mg Tablet.dr, 1 TAB PO DAILY, #30 TAB 5 Refills LAST DOSE: 10/28/15 AM NEXT DOSE: 10/29/15 AM 05/01/15 Amlodipine Besylate (AMLODIPINE BESYLATE) 10 Mg Tablet, 10 MG PO DAILY, TAB LAST DOSE: 10/28/15 AM NEXT DOSE: 10/29/15 AM 05/01/15 ARCHANA BOWENS MD Jul 21, 2020 12:22
--- NOTE | 2020-07-21 12:26 | PDOC3 ---
Discharge Summary Visit Information Date of Admission: Jul 16, 2020 Date of Discharge: Jul 21, 2020 Final Diagnosis Problems Medical Problems: (1) Hypoxia Status: Acute (2) Suspected 2019 novel coronavirus infection Status: Acute (3) Syncope Status: Acute Brief Hospital Course Allergies Allergies Coded Allergies Type Severity Reaction Last Updated Verified ARB-Angiotensin Receptor Antagonist Allergy Intermediate 05/01/15 Yes Penicillins Allergy Intermediate 05/01/15 Yes meperidine Allergy Intermediate 05/01/15 Yes Vital Signs Vital Signs Date Time Temp Pulse Resp B/P (MAP) Pulse Ox O2 Delivery O2 Flow Rate FiO2 07/21/20 11:00 99.7 78 18 115/50 (71) 90 Room Air 99.7 07/20/20 07:00 1.0 Lab Results Laboratory Tests Test 07/20/20 03:30 07/21/20 08:15 White Blood Count 3.6 x10^3/uL (4.0-11.0) 4.4 x10^3/uL (4.0-11.0) Red Blood Count 4.29 x10^6/uL (3.50-5.40) 4.80 x10^6/uL (3.50-5.40) Hemoglobin 11.9 g/dL (12.0-15.5) 13.3 g/dL (12.0-15.5) Hematocrit 35.5 % (36.0-47.0) 39.5 % (36.0-47.0) Mean Corpuscular Volume 83 fL (79-100) 83 fL (79-100) Mean Corpuscular Hemoglobin 28 pg (25-35) 28 pg (25-35) Mean Corpuscular Hemoglobin Concent 34 g/dL (31-37) 34 g/dL (31-37) Red Cell Distribution Width 16.1 % (11.5-14.5) 16.0 % (11.5-14.5) Platelet Count 115 x10^3/uL (140-400) 146 x10^3/uL (140-400) Neutrophils (%) (Auto) 70 % (31-73) 79 % (31-73) Lymphocytes (%) (Auto) 20 % (24-48) 14 % (24-48) Monocytes (%) (Auto) 10 % (0-9) 7 % (0-9) Eosinophils (%) (Auto) 0 % (0-3) 0 % (0-3) Basophils (%) (Auto) 0 % (0-3) 0 % (0-3) Neutrophils # (Auto) 2.5 x10^3/uL (1.8-7.7) 3.5 x10^3/uL (1.8-7.7) Lymphocytes # (Auto) 0.7 x10^3/uL (1.0-4.8) 0.6 x10^3/uL (1.0-4.8) Monocytes # (Auto) 0.3 x10^3/uL (0.0-1.1) 0.3 x10^3/uL (0.0-1.1) Eosinophils # (Auto) 0.0 x10^3/uL (0.0-0.7) 0.0 x10^3/uL (0.0-0.7) Basophils # (Auto) 0.0 x10^3/uL (0.0-0.2) 0.0 x10^3/uL (0.0-0.2) Sodium Level 142 mmol/L (136-145) 142 mmol/L (136-145) Potassium Level 3.3 mmol/L (3.5-5.1) 2.9 mmol/L (3.5-5.1) Chloride Level 105 mmol/L (98-107) 101 mmol/L (98-107) Carbon Dioxide Level 27 mmol/L (21-32) 29 mmol/L (21-32) Anion Gap 10 (6-14) 12 (6-14) Blood Urea Nitrogen 22 mg/dL (7-20) 12 mg/dL (7-20) Creatinine 1.2 mg/dL (0.6-1.0) 0.8 mg/dL (0.6-1.0) Estimated GFR (Cockcroft-Gault) 52.2 83.3 Glucose Level 124 mg/dL (70-99) 91 mg/dL (70-99) Calcium Level 8.1 mg/dL (8.5-10.1) 8.1 mg/dL (8.5-10.1) Laboratory Tests Test 07/21/20 08:15 White Blood Count 4.4 x10^3/uL (4.0-11.0) Red Blood Count 4.80 x10^6/uL (3.50-5.40) Hemoglobin 13.3 g/dL (12.0-15.5) Hematocrit 39.5 % (36.0-47.0) Mean Corpuscular Volume 83 fL (79-100) Mean Corpuscular Hemoglobin 28 pg (25-35) Mean Corpuscular Hemoglobin Concent 34 g/dL (31-37) Red Cell Distribution Width 16.0 % (11.5-14.5) Platelet Count 146 x10^3/uL (140-400) Neutrophils (%) (Auto) 79 % (31-73) Lymphocytes (%) (Auto) 14 % (24-48) Monocytes (%) (Auto) 7 % (0-9) Eosinophils (%) (Auto) 0 % (0-3) Basophils (%) (Auto) 0 % (0-3) Neutrophils # (Auto) 3.5 x10^3/uL (1.8-7.7) Lymphocytes # (Auto) 0.6 x10^3/uL (1.0-4.8) Monocytes # (Auto) 0.3 x10^3/uL (0.0-1.1) Eosinophils # (Auto) 0.0 x10^3/uL (0.0-0.7) Basophils # (Auto) 0.0 x10^3/uL (0.0-0.2) Sodium Level 142 mmol/L (136-145) Potassium Level 2.9 mmol/L (3.5-5.1) Chloride Level 101 mmol/L (98-107) Carbon Dioxide Level 29 mmol/L (21-32) Anion Gap 12 (6-14) Blood Urea Nitrogen 12 mg/dL (7-20) Creatinine 0.8 mg/dL (0.6-1.0) Estimated GFR (Cockcroft-Gault) 83.3 Glucose Level 91 mg/dL (70-99) Calcium Level 8.1 mg/dL (8.5-10.1) Brief Hospital Course Ms. Kerr is a 79 old female who presented with syncope, hypoxia, COVID-19, severe dementia. Consultations placed to cardiology. Patient recommended outpatient echocardiogram once she is COVID-19 recovered. Suspect etiology of syncope secondary to severe dehydration. Will discharge patient to SNU. Discharge Information Condition at Discharge: Stable Disposition/Orders: D/C to Another Facility Scheduled Amlodipine Besylate (Amlodipine Besylate) 10 Mg Tablet, 10 MG PO DAILY, (Reported) LAST DOSE: 10/28/15 AM NEXT DOSE: 10/29/15 AM Entered as Reported by: PRESOTN HERNANDEZ on 05/01/15 1358 Last Action: Continued on 07/17/20 1048 by DOMINIQUE FLORENCE Aspirin (Aspir 81) 81 Mg Tablet.dr, 1 TAB PO DAILY, #30 Ref 5 (Reported) LAST DOSE: 10/28/15 AM NEXT DOSE: 10/29/15 AM Entered as Reported by: PRESTON HERNANDEZ on 05/01/15 1358 Carvedilol (Carvedilol ) 12.5 Mg Tablet, 12.5 MG PO BIDWMEALS, #30 Prescribed by: ROBERT MONTAÑO MD on 10/28/15 1035 Donepezil Hcl (Donepezil Hcl) 5 Mg Tablet, 1 TAB PO DAILY, #30 Ref 5 (Reported) LAST DOSE: 10/28/15 AM NEXT DOSE: 10/29/15 AM Entered as Reported by: CAMPBELL CHEATHAM on 10/27/151823 Last Action: Continued on 07/17/20732 by DOMINIQUE FLORENCE Gabapentin (Gabapentin ) 300 Mg Capsule, 300 MG PO TID, (Reported) LAST DOSE: 10/28/15 AM NEXT DOSE: 10/28/15 2PM Entered as Reported by: CAMPBELL CHEATHAM on 10/27/151819 Last Action: Continued on 07/17/20732 by DOMINIQUE FLORENCE Hydralazine Hcl (Hydralazine Hcl) 50 Mg Tablet, 50 MG PO BID for HTN, #60 Ref 2 Prescribed by: ARCHANA BOWENS MD on 07/21/20 1220 Potassium Chloride (Potassium Chloride) 20 Meq Tab.er.prt, 1 TAB PO BID, #180 Ref 3 (Reported) LAST DOSE: 10/28/15 AM NEXT DOSE: 10/28/15 AFTERNOON Entered as Reported by: PRESTON HERNANDEZ on 05/01/15 1358 Rivaroxaban (Xarelto) 20 Mg Tablet, 20 MG PO DAILY, (Reported) NEXT DOSE: 10/29/15 AM Entered as Reported by: CAMPBELL CHEATHAM on 10/27/150 Last Action: Converted on 07/17/20732 by DOMINIQUE FLORENCE Discontinued Medications Carvedilol (Carvedilol) 25 Mg Tablet, 1 TAB PO BID for cad, (Reported) Entered as Reported by: Nel Topete on 07/17/20 0305 Last Action: Converted on 07/17/20732 by DOMINIQUE FLORENCE Justicifation of Admission Dx: Justifications for Admission: Justification of Admission Dx: Yes ARCHANA BOWENS MD Jul 21, 2020 12:26
--- NOTE | 2020-07-21 13:35 | PDOC ---
CARDIO Progress Notes Date and Time Date of Service 07/21/20 Time of Evaluation 1210 Subjective Subjective: No Chest Pain, No shortness of breath, No Palpitations, No Dizziness Vitals Vitals Vital Signs Date Time Temp Pulse Resp B/P (MAP) Pulse Ox O2 Delivery O2 Flow Rate FiO2 07/21/20 11:00 99.7 78 18 115/50 (71) 90 Room Air 99.7 07/20/20 07:00 1.0 Weight Weight [ ] Input and Output Intake and Output Intake and Output 07/21/20 07:00 Intake Total 1340 ml Balance 1340 ml Intake Oral 340 ml Blood Product IV Normal Saline Flush 1000 ml # Voids 5 Laboratory Labs Laboratory Tests Test 07/21/20 08:15 07/21/20 12:24 White Blood Count 4.4 x10^3/uL (4.0-11.0) Red Blood Count 4.80 x10^6/uL (3.50-5.40) Hemoglobin 13.3 g/dL (12.0-15.5) Hematocrit 39.5 % (36.0-47.0) Mean Corpuscular Volume 83 fL (79-100) Mean Corpuscular Hemoglobin 28 pg (25-35) Mean Corpuscular Hemoglobin Concent 34 g/dL (31-37) Red Cell Distribution Width 16.0 % (11.5-14.5) Platelet Count 146 x10^3/uL (140-400) Neutrophils (%) (Auto) 79 % (31-73) Lymphocytes (%) (Auto) 14 % (24-48) Monocytes (%) (Auto) 7 % (0-9) Eosinophils (%) (Auto) 0 % (0-3) Basophils (%) (Auto) 0 % (0-3) Neutrophils # (Auto) 3.5 x10^3/uL (1.8-7.7) Lymphocytes # (Auto) 0.6 x10^3/uL (1.0-4.8) Monocytes # (Auto) 0.3 x10^3/uL (0.0-1.1) Eosinophils # (Auto) 0.0 x10^3/uL (0.0-0.7) Basophils # (Auto) 0.0 x10^3/uL (0.0-0.2) Sodium Level 142 mmol/L (136-145) Potassium Level 2.9 mmol/L (3.5-5.1) Chloride Level 101 mmol/L (98-107) Carbon Dioxide Level 29 mmol/L (21-32) Anion Gap 12 (6-14) Blood Urea Nitrogen 12 mg/dL (7-20) Creatinine 0.8 mg/dL (0.6-1.0) Estimated GFR (Cockcroft-Gault) 83.3 Glucose Level 91 mg/dL (70-99) Calcium Level 8.1 mg/dL (8.5-10.1) Glucose (Fingerstick) 130 mg/dL (70-99) Microbiology Micro Microbiology 07/16/20 Blood Culture - Final, Complete NO GROWTH AFTER 5 DAYS Physical Exam HEENT: Neck Supple W Full Motion Chest: Symmetric LUNGS: Other (on RA) Heart: RRR Abdomen: Soft N/T Extremities: No Edema Neurology: alert, follow commands, confused Assessment Assessment 1. Syncopal episode: etiology unclear. possible vasovagal. Doubt related to arrhythmia, no ectopies note on tele 2. HTN encephalopathy with associated dementia 3. Accelerated HTN: better controlled, but labile at times 4. CAD: 2VD in 2016 no intervention. trops nml. EKG SR without acute changes 5. Hx of PE with chronic xarelto use. CT neg for PE 6. Hyperlipidemia; statin 7. Leukopenia 8. PUI; COVID + febrile Recommendations Continue coreg, amlodipine, hydralazine for BP control. Allergy to ARB Secondary prevention measures. ASA/statin therapy Outpatient echo as arranged Supportive care Follow up with Dr. Posada in [place] as scheduled Justicifation of Admission Dx: Justifications for Admission: Justification of Admission Dx: Yes SERA AUGUSTINILY GRAEME Jul 21, 2020 13:35
--- NOTE | 2020-07-21 14:40 | NUR ---
Discharge Note: [facility] Discharge instructions and discharge home medications reviewed with Courtney at [facility] and a copy given. All questions have been answered and understanding verbalized. The following instructions and handouts were given: transfer of care. Discontinued lines and drains: 22 gauge left FA, tip intact. patient tolerated well. Patient discharged to [facility] via transportation.
[2020-07-21] MEDS ORDERED: LACTOBACILLUS RHAMNOSUS GG 1 CAPSULE. PO SCH (21:00)
== END 2020-07-21 14:25 | DRG 177 ==
LOC: ER 11:26 → 6 SOUTH 14:59
PROVIDERS: ADMIT Internal Medicine; ATTEND Internal Medicine
DX: U07.1 COVID-19 (principal); N17.0 Acute kidney failure with tubular necrosis; I44.2 Atrioventricular block, complete; I67.4 Hypertensive encephalopathy; D68.9 Coagulation defect, unspecified; E86.0 Dehydration; I10 Essential (primary) hypertension; I25.10 Atherosclerotic heart disease of native coronary artery without angina pectoris; I95.1 Orthostatic hypotension; R09.02 Hypoxemia; R56.9 Unspecified convulsions; D72.819 Decreased white blood cell count, unspecified; E78.5 Hyperlipidemia, unspecified; F03.90 Unspecified dementia, unspecified severity, without behavioral disturbance, psychotic disturbance, mood disturbance, and anxiety; G43.909 Migraine, unspecified, not intractable, without status migrainosus; E87.6 Hypokalemia; E16.2 Hypoglycemia, unspecified; D64.9 Anemia, unspecified; Z88.0 Allergy status to penicillin; Z88.8 Allergy status to other drugs, medicaments and biological substances; Z86.711 Personal history of pulmonary embolism; Z79.01 Long term (current) use of anticoagulants; Z79.899 Other long term (current) drug therapy; Z82.49 Family history of ischemic heart disease and other diseases of the circulatory system; Z79.82 Long term (current) use of aspirin
CPT/HCPCS: 36415; 70450; 71275; 72125; 74177; 80048; 80053; 80061; 81001; 82553; 82962; 83605; 83735; 84100; 84443; 84484; 85025; 87040; 93005; 94760; J1650; J2920; J3490; J7030; Q9967; U0003; 97116-GP; 97530-GP; 97535-GO; G0378